=== PATIENT | female | born 2000 | race Caucasian/White ===

== ENCOUNTER → 2021-03-19 15:44 | Outpatient (CLI) | payer OTHER, SELFPAY ==
[2021-03-19 17:12] LABS: Hematocrit 31.7 % (36-46)
[2021-03-19 17:25] LABS: GTT (PREG) 1 Hour PP 50gm Dose 140 mg/dL (76-139)
== END ==
PROVIDERS: Referring Provider Specialist; Visit Provider Specialist
DX: Z34.03 Encounter for supervision of normal first pregnancy, third trimester (principal)
CPT/HCPCS: 82950; 85014; 85018

== ENCOUNTER → 2021-04-23 15:40 | Outpatient (CLI) | payer OTHER, SELFPAY ==
[2021-04-24 15:58] LABS: Strep Grp B PCR NEG for Grp B Strep
== END ==
PROVIDERS: Visit Provider Specialist
DX: Z34.03 Encounter for supervision of normal first pregnancy, third trimester (principal); Z3A.36 36 weeks gestation of pregnancy
CPT/HCPCS: 87653

== ENCOUNTER 2021-05-21 16:08 | Outpatient (CLI) | payer OTHER, SELFPAY ==
--- NOTE | 2021-05-21 16:43 | P.TNLD_ITS ---
Visit Information Visit Information Date of evaluation: 05/21/21 Primary OB Provider: Diane Luis Reason for Evaluation: Yes non-stress test Comments/Additional reasons for admission: Postdates [facility] Medical History (Updated 05/21/21 @ 16:46 by Diane Luis MD) Asthma (~2002) Astigmatism (~2010) H/O molluscum contagiosum (~10/30/20) Surgical History (Updated 02/26/21 @ 14:26 by Nellie Rodgers, RN) [place] teeth extracted (~2018) Family History (Updated 02/26/21 @ 14:49 by Nellie Rodgers RN) Mother No problems noted. Father No problems noted. Grandmother No problems noted. Grandfather No problems noted. Grandmother Diabetes mellitus Grandfather Family estrangement Social History marital status: number of children: 0 household members: spouse lives independently: Yes caregiver/support person: No housing: apartment pets and animals: Yes (1 dog: safe w baby. ) education level: high school occupational status: employed (On halfway in place restriction with [employer] -- does not work but checks in daily. ) current occupational exposures/hazards: No jose/anabaptism: Religion seatbelt use: always working smoke detector in home: Yes fire extinguisher in home: No carbon monox detector in home: Yes firearms in home: No do you feel safe at home: Yes Smoking Status: Never smoker second hand exposure: No alcohol intake: never substance use type: does not use during the past year weight has: remained stable well-balanced diet: daily or most days daily servings fruits/ve-4 caffeine: Yes (1 soda every couple days. Aware of caffeine limits.) Type(s) of exercise: walking and other (Stretches.) frequency: 3-4 times per week Evaluation Evaluation Baseline heart rate: 130 Variability: Moderate (11-25) monitor accelerations: Present Monitor Decelerations: Absent Contraction Frequency (minutes): 10 Uterine Contraction Intensity: Mild Category of Tracing: Reactive Status: Category l Diagnosis, Plan/Disposition Final Diagnosis (1) 40 weeks gestation of : Status: Acute Plan/Disposition Plan: Routine precautions reviewed. Follow-up in week. OB Disposition: home
== END 2021-05-21 16:57 | disposition home or self-care (01) ==
LOC: LABOR 16:57 → OB 05-26 07:34
PROVIDERS: Referring Provider Obstetrics & Gynecology; Visit Provider Obstetrics & Gynecology
DX: O48.0 Post-term pregnancy (principal); Z3A.40 40 weeks gestation of pregnancy
CPT/HCPCS: 59025; G0378; G0379

== ENCOUNTER 2021-05-25 13:32 | Inpatient (IN) | payer OTHER, SELFPAY ==
--- NOTE | 2021-05-25 16:51 | PM.OBHP.1 ---
OB HPI Date/Time Date of admission: 05/25/21 Date Patient Seen: 05/25/21 Time Patient Seen: 19:51 History of Present Condition Chief complaint: OBSERVATION : 1 Para: 0 Estimated Date of Delivery: 05/19/21 Estimated Gestational Age (weeks): 40+6 Narrative: Jill Anderson is a 21 year old primigravida who presents this afternoon with RUC since early this AM and early cervical exam on serial center assessments. GBS is negative. 1 hr. GDM screen was 140 mg% but no GTT obtained. Most recent US based EFW was 05/21/2021 8#9oz with RAYMUNDO 10. History of Present care: good care Dating criteria: LMP confirmed by 1st trimester US Ultrasounds: normal 1st trimester US and normal mid trimester US Obstetrical complications: other (Abnormal GDM screen) Medical complications: none Preadmission Labs Blood type: A (+) positive -: Antibody screen: negative, GBS status: negative, HBsAG: negative, HIV: negative and RPR/VDLR: negative -: Chlamydia screen: not detected and Gonorrhea screen: not detected -: Rubella: immune and Varicella: immune HCT: 39.1 HCAB: negative 1 hr GTT: 140 Prior (ies) History: Primigravida Evaluation Evaluation Baseline heart rate: 140 Variability: Moderate (11-25) monitor accelerations: Present Monitor Decelerations: Absent Contraction Frequency (minutes): 4 Uterine Contraction Intensity: Moderate Category of Tracing: Reactive Status: Category l Cervical dilation (cm): 5 Cervical effacement (%): 100 station: -2 Comments: SROM, clear fluid 1815 05/25/2021 [facility] Medical History Asthma (~2002) Astigmatism (~2010) H/O molluscum contagiosum (~10/30/20) Surgical History [place] teeth extracted (~2018) Family History Mother No problems noted. Father No problems noted. Grandmother No problems noted. Grandfather No problems noted. Grandmother Diabetes mellitus Grandfather Family estrangement Social History marital status: number of children: 0 household members: spouse lives independently: Yes caregiver/support person: No housing: apartment pets and animals: Yes (1 dog: safe w baby. ) education level: high school occupational status: employed (On residential in place restriction with [employer] -- does not work but checks in daily. ) current occupational exposures/hazards: No jose/tenriism: Amish seatbelt use: always working smoke detector in home: Yes fire extinguisher in home: No carbon monox detector in home: Yes firearms in home: No do you feel safe at home: Yes Smoking Status: Never smoker second hand exposure: No alcohol intake: never substance use type: does not use during the past year weight has: remained stable well-balanced diet: daily or most days daily servings fruits/ve-4 caffeine: Yes (1 soda every couple days. Aware of caffeine limits.) Type(s) of exercise: walking and other (Stretches.) frequency: 3-4 times per week Meds Home Medications and Allergies Home Medications Medication Instructions Recorded Confirmed Type prenat.vits,derian,oyz-ogig-lvejb 1 tab PO DAILY 02/26/21 05/25/21 History Allergies Allergy/AdvReac Type Severity Reaction Status Date / Time No Known Drug Allergies Allergy Verified 04/23/21 13:57 Review of Systems Review of Systems ROS: Yes All systems reviewed with the patient and are negative except as otherwise documented Exam Const General: cooperative and comfortable Nutritional Appearance: average body habitus Orientation: alert and oriented x3 HENMT Head: normal to inspection Ears: hearing grossly normal bilaterally Nose: external nose normal Face and sinus: face symmetric Teeth and gingiva: dentition normal Throat: posterior oropharynx normal Eyes General: appearance normal, both eyes and all related structures Conjunctivae: conjunctivae normal Sclera: sclerae normal Pupils: PERRL EOM: EOM intact bilaterally Direct ophthalmoscopy: normal light reflex Neck Neck: normal visual inspection and trachea midline Thyroid: thyroid normal Resp Effort & Inspection: normal respiratory effort and able to speak in complete sentences Auscultation: clear to auscultation bilaterally Cardio Rate: regular rate Rhythm: regular rhythm Heart Sounds: S1 normal, S2 normal and no murmurs GI Inspection: normal to inspection and other (Gravid) Palpation: soft and no hepatosplenomegaly External Female Exam: normal external appearance Uterus Location (Fundal Height): 38 Presentation: vertex Estimated Weight (lbs): 9 Amniotic Fluid: clear Extrem General: normal to inspection and no calf tenderness Psych Appearance: grossly normal Mental Status: mental status grossly normal Speech and Movement: speech and movement normal Mood: congruent mood Affect: normal affect Attitude: cooperative Thought Process: normal Thought Content: normal Judgment: judgment good Objective Labs Result Diagrams: 05/25/21 16:30 Assessment and Plan Assessment and Plan Assessment and Plan narrative: ASSESSMENT 1. Intrauterine gestation, 40+ 6 weeks gestational age, [place], vertex 2. Latent phase labor with SROM 1815, 05/25/2021 3. GBS negative 4. LGA by her most recent US w/ EFW 8#9oz 4 days ago PLAN 1. Admit for labor 2. SONJA placed with excellent relief 3. Anticipate but pelvis is unproven and her baby is borderline LGA 4. See orders Time Spent with Patient Total time spent with greater than 50% in coordination of care (as documented) at patient's floor/unit and/or counseling patient:: 15-24 minutes
[2021-05-25 17:17] LABS: Add Manual Diff / Slide Review NO; Basophils Absolute Auto 0 /uL (0-100); Basophils Percent Auto 0.2 % (0-2); Eosinophils Absolute Auto 0 /uL (0-450); Eosinophils Percent Auto 0.2 % (2-4); Hematocrit 39.1 % (36-46); Hemoglobin 13.4 g/dL (12.0-16.0); Lymphocytes Absolute Auto 1300 /uL (1100-4500); Lymphocytes Percent Auto 10.9 % (25-40); Mean Corpuscular HGB Conc 34.2 % (30-36); Mean Corpuscular Hemoglobin 34.4 PG (26-34); Mean Corpuscular Volume 100.5 fL (80-100); Monocytes Absolute Auto 900 /uL (0-900); Monocytes Percent Auto 7.6 % (3-14); Neutrophils Absolute Auto 9500 /uL (1500-7000); Neutrophils Percent Auto 81.1 % (50-75); Platelet Count 189 X10^3/uL (150-400); Red Blood Cell Count 3.89 X10^6/uL (4.0-5.2); Red Cell Distribution Width 13.4 % (11.6-14.8); White Blood Cell Count 11.8 X10^3/uL (4.5-11.0)
[2021-05-25 17:57] VITALS: BP 117/73
[2021-05-25 18:09] LABS: COVID19 - ADMIT (NP swab/PCR) Negative (Negative)
[2021-05-25] MEDS: LACTATED RINGERS 1,000 ML 100 ML IV ×2 (19:00→19:30)
--- NOTE | 2021-05-26 06:00 | PM.OBPNLAB ---
Date/Time Date Patient Seen: 05/26/21 Time Patient Seen: 06:01 Pain Control Pain control: tolerating well Pelvic Exam Dilation (cm): 8 Effacement (%): 100 station: -1 Amniotic membrane status: Ruptured Comments: SROM, light meconium @ 0500 Contractions Contractions on admission: regular Monitor mode: External Contraction frequency (min): 3 Contraction duration (min): 1 Contraction pattern: Regular Contraction phase: Resting Contraction intensity: Moderate Status status: Category l Heart Rate Baseline: 150 Monitor Accelerations: Present Monitor Decelerations: Absent Monitor Variability: Moderate Assessment and Plan Assessment: active labor Plan: continuous present management Comments: Patient has shown little progress since 0300 this AM but forewaters therefore will re-assess cervical dilation and position @ 0700 and consider IUPC if secondary arrest suspected.
--- NOTE | 2021-05-26 07:03 | PM.OBPRVD ---
Labor & Delivery Delivery date: 05/26/21 Intrapartal Events: None Cervical ripening method: none Induction method: none Delivery monitor: external FHT and external uterine Route of delivery: Episiotomy description: None L&D Laceration Description: Periurethral - 1st Degree (Bilateral, no repair required) Estimated blood loss (mL): 1,000 Anesthesia Type: Epidural Complications: None. EBL c/w PPH, responded to IV Pitocin Narrative: With the patient under satisfactory continuous lumbar epidural anesthesia in the modified dorsal lithotomy position the patient actively pushed in the 2nd stage and brought the baby down to the perineum where she had spontaneous delivery MADAI over an intact perineum of a viable male infant Apgars 8/9 and a weight of gms.(# oz.). The shoulders delivered without difficulty and the was placed on the mother's abdomen with the umbilical cord clamping delayed for 90 seconds. The placenta was then delivered with gentle cord traction and suprapubic pressure. With the delivery of placenta came a large gush of BRB which accounted for the majority of her delivery EBL. The placenta was noted to be intact with central insertion of the umbilical cord and 3 vessels noted. The perineum and lower vagina were all inspected carefully with the lacerations as noted above. Neither of the periurethral lacerations required closure.. Sponge, instrument, and needle counts were correct both before and after the procedure. EBL was approximately 1000 cc. QBL pending. Mother and infant tolerated the delivery well and the baby is having skin to skin contact and is being initiated. Baby 1: gender: Male Presentation: vertex Position: Left Occiput Anterior Placenta delivery description: Spontaneous Cord Vessel Description: 3 Vessels score (1 min): 8 score (5 min): 9 weight: 9 lb 14 oz Plan for aftercare: Routine care
[2021-05-26] MEDS: ACETAMINOPHEN 325 MG TABLET 650 MG PO ×3 (11:07→22:43)
[2021-05-26] MEDS: IBUPROFEN 600 MG TABLET PO ×3 (11:08→22:43)
[2021-05-26 17:05] VITALS: TEMP 36.6
[2021-05-26 17:06] VITALS: TEMP 36.6
[2021-05-27 00:33] VITALS: BP 117/73; PULSE 66; RESP 16; TEMP 36.6
[2021-05-27] MEDS: ACETAMINOPHEN 325 MG TABLET 650 MG PO (05:47)
[2021-05-27] MEDS: IBUPROFEN 600 MG TABLET PO (05:47)
[2021-05-27] MEDS: LANOLIN OINT 7 GM 1 APPLIC TOP (08:57)
[2021-05-27] MEDS: PRENATAL VIT,CALC/IRON/FOLIC 1 TABLET 1 TAB PO (08:59)
[2021-05-27] MEDS: DOCUSATE 100 MG CAPSULE PO (09:00)
--- NOTE | 2021-05-27 12:24 | P.DS_ITS ---
Discharge Providers Provider Date of admission: 05/25/21 13:32 Discharge Date: 05/27/21 Consults: 05/25/21 16:36 Consult to Anesthesiology Urgent Comment: Consulting Provider: Anesthesiologist Reason for consultation: epidural Has provider been notified: Yes 05/27/21 07:06 Consult to Medical Records Secretary Routine Comment: Discharge provider: Diane Luis MD Summary Hospital Course Date Patient Seen: 05/27/21 Time Patient Seen: 12:25 Diagnoses: 41 week gestation with spontaneous vaginal delivery Hospital Course: Patient arrived on Labor and delivery in active labor. She received an epidural catheter for pain control. She had a spontaneous vaginal delivery of a viable male infant weighing 9 lb 13 oz. Both infant mother doing well. Peripartum Data Delivery Method: Natural Vaginal Laceration Description: None Procedures: Epidural catheter, spontaneous vaginal delivery complications: none [place] 1: Gender: Male Disposition of : home Discharge Diagnosis (1) Vaginal delivery: Status: Acute Status at Discharge Cognitive/behavioral status at discharge: oriented Functional status at discharge: independent ambulation Overall status at discharge: patient is progressing back to baseline Time Spent with Patient Time attestation: Total time spent providing and/or coordinating discharge services: Time spent: Less than 30 minutes Objective Labs Result Diagrams: 05/25/21 16:30 Exam Vital Signs (past 8 hours): Blood pressure 109/62, pulse 66, temperature 97.9? Narrative Exam Narrative: Patient's abdomen is soft, nontender. Uterus is firm, at U, nontender. Mild lochia. Extremities without edema and nontender. Blood type is A positive, she is rubella immune, she received Tdap in the 3rd trimester Discharge Plan Discharge Plan Patient Disposition: Home Discharge orders & Medications Prescriptions: Continued prenat.vits,derian,[id number]-[id number] Tablet 1 tab PO DAILY RF: 0 Follow up/Referrals: Diane Luis MD [Physician] - 07/01/21 10:30 am Diet/Activity/Treatments Diet: Regular Activity: Nothing in vagina for 6 weeks Skin/Wound/Dressing Care Report to your healthcare provider any signs of infection, such as:: chills, fever and increased pain Visit Report/Discharge Packet Stand Alone Forms: Discharge: Care
== END 2021-05-27 13:00 | disposition home or self-care (01) | DRG 807 ==
PROVIDERS: Specialist; Admitting Provider Obstetrics & Gynecology; Referring Provider Obstetrics & Gynecology; Visit Provider Obstetrics & Gynecology
DX: O48.0 Post-term pregnancy (principal); Z37.0 Single live birth; O42.02 Full-term premature rupture of membranes, onset of labor within 24 hours of rupture; Z3A.41 41 weeks gestation of pregnancy; O77.0 Labor and delivery complicated by meconium in amniotic fluid; Z20.822 Contact with and (suspected) exposure to COVID-19
CPT/HCPCS: 01967; 36415; 59050; 59410; 85025; 86850; 86900; 86901; 87635; C9803; G0379

== ENCOUNTER → 2023-01-07 06:50 | Outpatient (CLI) | payer OTHER, SELFPAY ==
--- NOTE | 2023-01-07 06:51 | DI.US.S_ITS ---
PROCEDURE: US OB <= 14 WEEKS FETUS INDICATIONS: DATING OUTSIDE/PRIOR DATING DATA: Last menstrual period (LMP): Unknown. LMP-based estimated date of delivery (AI): Unknown. First dating scan (date and location): 01/07/2023. Estimated date of delivery (AI) from first dating scan: 08/28/2023. TECHNIQUE: Real-time scanning was performed of the fetus and maternal pelvic organs, with image documentation. Endovaginal scanning was also performed to better visualize the fetus and maternal ovaries. COMPARISON: None. FINDINGS: Embryo: [place]-rump length measuring 0.8 cm, gestational age 6 weeks 5 days Heart rate: 122 bpm A yolk sac is seen. A thin septation within the gestational sac is seen. Small perigestational hemorrhage measuring 2.2 x 1.5 x 0.2 cm. Maternal organs: Ovaries are within normal limits. Probable left corpus luteum. IMPRESSION: 1. [place] living intrauterine at 6 weeks 5 days based on today's crown rump length. 2. Small perigestational hemorrhage. We strive to produce accurate, complete, and clear reports of imaging services. To assist us in improving patient care, this report was composed using standard report templates and voice recognition software. Therefore, it may contain abnormal punctuation, insertions and/or omissions. Occasional wrong-word or sound-alike substitutions may occur. Though we review the report and make efforts to correct it, we do recommend that the report be read carefully in proper context to recognize any text inaccuracies. Dictated by: Henry Roberts M.D. on 01/07/2023 at 8:53 Approved by: Henry Roberts M.D. on 01/07/2023 at 8:55
== END ==
PROVIDERS: Referring Provider Obstetrics & Gynecology; Visit Provider Obstetrics & Gynecology
DX: O46.8X1 Other antepartum hemorrhage, first trimester (principal); Z3A.01 Less than 8 weeks gestation of pregnancy
CPT/HCPCS: 76801; 76817

== ENCOUNTER → 2023-02-16 16:27 | Outpatient (CLI) | payer OTHER, SELFPAY ==
[2023-02-16 17:33] LABS: Add Manual Diff / Slide Review NO; Basophils Absolute Auto 100 /uL (0-100); Basophils Percent Auto 0.6 % (0-2); Eosinophils Absolute Auto 100 /uL (0-450); Hemoglobin 10.9 g/dL (12.0-16.0); Lymphocytes Absolute Auto 1500 /uL (1100-4500); Lymphocytes Percent Auto 16.9 % (25-40); Mean Corpuscular HGB Conc 35.3 % (30-36); Mean Corpuscular Hemoglobin 31.4 PG (26-34); Mean Corpuscular Volume 89.1 fL (80-100); Monocytes Absolute Auto 500 /uL (0-900); Monocytes Percent Auto 6.3 % (3-14); Neutrophils Absolute Auto 6500 /uL (1500-7000); Neutrophils Percent Auto 75.2 % (50-75); Platelet Count 255 X10^3/uL (150-400); Red Blood Cell Count 3.48 X10^6/uL (4.0-5.2); Red Cell Distribution Width 11.9 % (11.6-14.8); White Blood Cell Count 8.6 X10^3/uL (4.5-11.0)
[2023-02-17 15:28] LABS: Hepatitis B Surface Antigen NEGATIVE s/c (NEGATIVE); Rubella Antibody IgG 6.8 IU/mL (>15)
[2023-02-17 15:50] LABS: HIV 1 & 2 Ab/Ag 4th Gen Combo NEGATIVE (NEGATIVE); Hep C Virus Ab w/Reflex Quant NEGATIVE s/c (NEGATIVE)
[2023-02-18 09:38] LABS: Varicella IgG Antibody <135 index (Immune >165)
[2023-02-19 03:09] LABS: RPR Screen Non Reactive (Non Reactive)
== END ==
PROVIDERS: Referring Provider Obstetrics & Gynecology; Visit Provider Obstetrics & Gynecology
DX: Z34.81 Encounter for supervision of other normal pregnancy, first trimester (principal)
CPT/HCPCS: 36415; 80055; 86787; 86803; 86850; 86900; 86901; 87389

== ENCOUNTER → 2023-03-23 10:17 | Outpatient (CLI) | payer OTHER, SELFPAY | PROVIDERS: Visit Provider Obstetrics & Gynecology | DX: Z34.81 Encounter for supervision of other normal pregnancy, first trimester (principal) | CPT/HCPCS: 87086 ==

== ENCOUNTER → 2023-03-23 10:47 | Outpatient (CLI) | payer OTHER, SELFPAY ==
[2023-03-26 21:15] LABS: AFP, Serum 61.6 ng/mL (.); Estriol, Free 1.45 ng/mL (.); Inhibin A, Dimeric 212.83 pg/mL (.); Inhibin A, MoM 1.28 (.); Maternal Ethnicity Caucasian (.); Maternal Weight 130 lbs (.); Number of Fetuses No (.); OSBR Risk 1 IN 3600 (.); Results Report (.); Test Results *Screen Negative* (.); hCG, MoM 1.41 (.); hCG, Serum 52891 mIU/mL (.)
== END ==
PROVIDERS: Referring Provider Obstetrics & Gynecology; Visit Provider Obstetrics & Gynecology
DX: Z34.82 Encounter for supervision of other normal pregnancy, second trimester (principal); Z3A.16 16 weeks gestation of pregnancy
CPT/HCPCS: 36415; 82105; 82677; 84702; 86336; 87086

== ENCOUNTER 2023-03-26 15:55 | Inpatient (IN) | payer OTHER, SELFPAY ==
[2023-03-26] VITALS (7 sets, daily range): BP systolic 95–101; BP diastolic 57–66; PULSE 80–98; RESP 14–23; TEMP 36.2–36.6; O2SAT 98–100; BMI 22.3
--- NOTE | 2023-03-26 16:17 | DI.US.S_ITS ---
PROCEDURE: US ABDOMEN LIMITED INDICATIONS: Epigastric pain, 18 weeks , loose stool, vomiting TECHNIQUE: Real-time scanning was performed of the right upper quadran, with image documentation. COMPARISON: None. FINDINGS: Liver: Liver is normal in size and homogeneous in echotexture. Gallbladder: Within the gallbladder there are numerous mobile stones. Positive sonographic Steele sign per personnel specialist. No pericholecystic fluid. Gallbladder wall measures 1.1 mm. Biliary ducts: Intrahepatic bile ducts are non-dilated. Extrahepatic bile duct caliber measures 2.3 mm. Normal is 6-7 mm or less in diameter, or 10 mm or less post-cholecystectomy. Pancreas: Visualized portions of the pancreas are sonographically normal. Miscellaneous: No free abdominal fluid. Other: Live intrauterine . heart rate of 157 beats per minute IMPRESSION: 1. Cholelithiasis with positive sonographic Steele is highly suggestive of acute cholecystitis 2. Live intrauterine . Dictated by: Rudolph Park M.D. on 03/26/2023 at 16:37 Approved by: Rudolph Park M.D. on 03/26/2023 at 16:40
--- NOTE | 2023-03-26 16:20 | ED_ITS ---
HPI - Abdominal Pain <ULYSSES Cornelius - Last Filed: 03/26/23 17:57> General Chief Complaint: Abdominal Pain Stated Complaint: Stomach cramps Time Seen by Provider: 03/26/23 16:06 History of Present Illness HPI narrative: This is a 18 week gestation female who presents to the emergency department with abdominal pain started yesterday in her lower abdomen and pelvis, states it has progressed today to generalized and upper abdominal pain associated with nausea, vomiting, loose stool. She states that she just got back from [place], has some upper respiratory congestion but denies fever, chills, dysuria, urinary frequency or urgency, endorses low back pain but states this is where her previous epidural was and is chronic in nature. Related Data Home Medications Medication Instructions Recorded Confirmed ferrous sulfate 250 mg (50 mg 250 mg PO DAILY 01/13/23 03/23/23 iron) tablet,extended release prenat.vits,derian,uyk-gykk-eeqlh 1 tab PO DAILY 01/13/23 03/23/23 Allergies Allergy/AdvReac Type Severity Reaction Status Date / Time No Known Drug Allergies Allergy Verified 03/26/23 16:04 Review of Systems <ULYSSES Cornelius - Last Filed: 03/26/23 17:57> Review of Systems ROS Unobtainable: All systems reviewed & are unremarkable except as noted in HPI and below Patient History <ULYSSES Cornelius - Last Filed: 03/26/23 17:57> Medical History Asthma (~2002) Astigmatism (~2010) Encounter for IUD insertion (~07/22/21) H/O molluscum contagiosum (~10/30/20) Migraine without aura Vaginal delivery (~05/26/21) Surgical History [place] teeth extracted (~2018) Family History Mother No problems noted. Father No problems noted. Grandmother No problems noted. Grandfather No problems noted. Grandmother Diabetes mellitus Grandfather Family estrangement Social History marital status: number of children: 1 household members: spouse and children lives independently: Yes caregiver/support person: Yes housing: apartment pets and animals: Yes (2 dogs) education level: high school occupational status: employed (active duty cook) current occupational exposures/hazards: No jose/pentecostalism: [employer] special jose needs: No travel history: recent (Domestic and [place] only) seatbelt use: always water heater temp set < 120 deg: Yes working smoke detector in home: Yes fire extinguisher in home: Yes carbon monox detector in home: Yes firearms in home: Yes firearms unloaded and locked: Yes do you feel safe at home: Yes Smoking Status: Never smoker second hand exposure: No alcohol intake: former (rarely when not ) substance use type: does not use during the past year weight has: remained stable well-balanced diet: about half the time daily servings fruits/ve-4 caffeine: Yes (1 soda every couple days. Aware of caffeine limits.) Type(s) of exercise: walking and other frequency: 3-4 times per week Smoking Status: Never smoker Exam <ULYSSES Cornelius - Last Filed: 03/26/23 17:57> Narrative Exam Narrative: Reviewed vitals signs and nursing notes. General: Pleasant, sitting upright, in no acute distress, well groomed, afebrile HEENT: symmetrical facial expressions, moist mucous membranes, neck is supple CV: regular rate and rhythm, warm extremities Respiratory: normal work of breathing, without tachypnea or hypoxia. GI: Gravid, fundus below the umbilicus, no exquisite tenderness, epigastric pain to palpation, she has no other tenderness to palpation, she does have left- sided CVA tenderness to palpation, no exquisite tenderness to the right MSK: moves all extremities, no weakness, normal tone, ambulatory without deficit Skin: brisk capillary refill, without rash or wound Neuro: clear speech and normal cognition, A&O x3, GCS 15, no focal motor or sensation deficits Initial Vital Signs Initial Vital Signs: Vital Signs Pulse Rate 84 03/26/23 16:01 Respiratory Rate 16 03/26/23 16:01 Blood Pressure 101/62 03/26/23 16:01 Pulse Oximetry 100 03/26/23 16:01 Oxygen Delivery Method Room Air 03/26/23 16:01 <Osmin Flores DO - Last Filed: 03/26/23 17:58> Initial Vital Signs Initial Vital Signs: Vital Signs Pulse Rate 84 03/26/23 16:01 Respiratory Rate 16 03/26/23 16:01 Blood Pressure 101/62 03/26/23 16:01 Pulse Oximetry 100 03/26/23 16:01 Oxygen Delivery Method Room Air 03/26/23 16:01 Course <ULYSSES Cornelius - Last Filed: 03/26/23 17:57> Orders Ordered: ED Orders 03/26/23 16:05 CRP [C-Reactive Protein Quant] Stat Complete Blood Count AUTO DIFF Stat Comprehensive Metabolic Panel Stat Covid-19 + FLU A/B + RSV - PCR Stat Lactate (Lactic Acid) Stat Lipase Stat Magnesium Stat Procalcitonin Stat 03/26/23 16:17 US abdomen limited Stat 03/26/23 16:40 Urine Culture Stat Urine Microscopic Stat 03/26/23 16:56 Blood Culture Stat 03/26/23 17:05 Blood Culture Stat Acetaminophen (Acetaminophen 325 Mg Tablet) 650 mg PO Q6H EULALIA Calcium Carbonate (Calcium Carbonate 500 Mg Tab) 1,000 mg PO Q4HR PRN PRN Reason: Dyspepsia Lactated Ringer's (Lactated Ringers) 1,000 mls @ 1,000 mls/hr IV BOLUS ONE Stop: 03/26/23 18:26 Last Admin: 03/26/23 17:39 Dose: 1,000 mls/hr Documented By: RLS Lactated Ringer's (Lactated Ringers) 1,000 mls @ 100 mls/hr IV CONT EULALIA Ceftriaxone Sodium 1,000 mg/ (Sodium Chloride) 100 mls @ 200 mls/hr IV Q24H EULALIA Naloxone HCl (Naloxone 0.4 Mg/Ml Vial) 0.2 mg IV Q2MIN PRN PRN Reason: Opiate Reversal Ondansetron HCl (Ondansetron 4 Mg Odt) 4 mg PO NOW PRN PRN Reason: Nausea And Vomiting Ondansetron HCl (Ondansetron 4 Mg/2 Ml Inj) 4 mg IV NOW PRN PRN Reason: Nausea And Vomiting Ondansetron HCl (Ondansetron 4 Mg/2 Ml Inj) 4 mg IV Q8HR PRN PRN Reason: Nausea And Vomiting Oxycodone HCl (Oxycodone Ir 5 Mg Tablet) 5 mg PO Q3H PRN PRN Reason: Pain, Moderate (4-6) Discontinued Medications Acetaminophen (Acetaminophen 325 Mg Tablet) 325 mg PO NOW ONE Stop: 03/26/23 16:57 Last Admin: 03/26/23 17:36 Dose: 325 mg Documented By: ADRIENNE Hydrocodone Bitart/Acetaminophen (Hydrocodone/Acet 5/325 Tablet) 1 tab PO NOW ONE Stop: 03/26/23 16:57 Last Admin: 03/26/23 17:37 Dose: 1 tab Documented By: RLS Al Hydrox/Mg Hydrox/Simethicone (Mag Hydrox/Alum/Simeth 30 Ml Udc) 30 ml PO NOW ONE Stop: 03/26/23 16:49 Last Admin: 03/26/23 16:59 Dose: 30 ml Documented By: ADRIENNE Sodium Chloride (Normal Saline 0.9%) 1,000 mls @ 1,000 mls/hr IV BOLUS ONE Stop: 03/26/23 17:16 Last Infusion: 03/26/23 17:39 Dose: 0 mls/hr Documented By: Admin: 03/26/23 16:45 Dose: 1,000 mls/hr Documented By: ADRIENNE Ceftriaxone Sodium 1,000 mg/ (Sodium Chloride) 100 mls @ 200 mls/hr IV NOW ONE Stop: 03/26/23 16:48 Last Admin: 03/26/23 17:37 Dose: 200 mls/hr Documented By: ADRIENNE Pantoprazole Sodium (Pantoprazole 40 Mg Vial) 40 mg IV NOW ONE Stop: 03/26/23 16:18 Last Admin: 03/26/23 16:45 Dose: 40 mg Documented By: ADRIENNE Potassium Chloride (Potassium Chloride 20 Meq/15 Ml Udc) 40 meq PO NOW ONE Stop: 03/26/23 16:47 Last Admin: 03/26/23 16:58 Dose: 40 meq Documented By: ADRIENNE Vital Signs Vital signs: Vital Signs - 8 hr 03/26/23 16:01 03/26/23 17:12 Temperature 97.8 F Pulse Rate 84 80 Respiratory Rate 16 14 Blood Pressure 101/62 Pulse Oximetry 100 99 Oxygen Delivery Method Room Air Room Air <Osmin Flores DO - Last Filed: 03/26/23 17:58> Orders Ordered: ED Orders 03/26/23 16:05 CRP [C-Reactive Protein Quant] Stat Complete Blood Count AUTO DIFF Stat Comprehensive Metabolic Panel Stat Covid-19 + FLU A/B + RSV - PCR Stat Lactate (Lactic Acid) Stat Lipase Stat Magnesium Stat Procalcitonin Stat 03/26/23 16:17 US abdomen limited Stat 03/26/23 16:40 Urine Culture Stat Urine Microscopic Stat 03/26/23 16:56 Blood Culture Stat 03/26/23 17:05 Blood Culture Stat Acetaminophen (Acetaminophen 325 Mg Tablet) 650 mg PO Q6H EULALIA Calcium Carbonate (Calcium Carbonate 500 Mg Tab) 1,000 mg PO Q4HR PRN PRN Reason: Dyspepsia Lactated Ringer's (Lactated Ringers) 1,000 mls @ 1,000 mls/hr IV BOLUS ONE Stop: 03/26/23 18:26 Last Admin: 03/26/23 17:39 Dose: 1,000 mls/hr Documented By: ADRIENNE Lactated Ringer's (Lactated Ringers) 1,000 mls @ 100 mls/hr IV CONT EULALIA Ceftriaxone Sodium 1,000 mg/ (Sodium Chloride) 100 mls @ 200 mls/hr IV Q24H EULALIA Naloxone HCl (Naloxone 0.4 Mg/Ml Vial) 0.2 mg IV Q2MIN PRN PRN Reason: Opiate Reversal Ondansetron HCl (Ondansetron 4 Mg Odt) 4 mg PO NOW PRN PRN Reason: Nausea And Vomiting Ondansetron HCl (Ondansetron 4 Mg/2 Ml Inj) 4 mg IV NOW PRN PRN Reason: Nausea And Vomiting Ondansetron HCl (Ondansetron 4 Mg/2 Ml Inj) 4 mg IV Q8HR PRN PRN Reason: Nausea And Vomiting Oxycodone HCl (Oxycodone Ir 5 Mg Tablet) 5 mg PO Q3H PRN PRN Reason: Pain, Moderate (4-6) Discontinued Medications Acetaminophen (Acetaminophen 325 Mg Tablet) 325 mg PO NOW ONE Stop: 03/26/23 16:57 Last Admin: 03/26/23 17:36 Dose: 325 mg Documented By: ADRIENNE Hydrocodone Bitart/Acetaminophen (Hydrocodone/Acet 5/325 Tablet) 1 tab PO NOW ONE Stop: 03/26/23 16:57 Last Admin: 03/26/23 17:37 Dose: 1 tab Documented By: RLS Al Hydrox/Mg Hydrox/Simethicone (Mag Hydrox/Alum/Simeth 30 Ml Udc) 30 ml PO NOW ONE Stop: 03/26/23 16:49 Last Admin: 03/26/23 16:59 Dose: 30 ml Documented By: ADRIENNE Sodium Chloride (Normal Saline 0.9%) 1,000 mls @ 1,000 mls/hr IV BOLUS ONE Stop: 03/26/23 17:16 Last Infusion: 03/26/23 17:39 Dose: 0 mls/hr Documented By: Admin: 03/26/23 16:45 Dose: 1,000 mls/hr Documented By: ADRIENNE Ceftriaxone Sodium 1,000 mg/ (Sodium Chloride) 100 mls @ 200 mls/hr IV NOW ONE Stop: 03/26/23 16:48 Last Admin: 03/26/23 17:37 Dose: 200 mls/hr Documented By: ADRIENNE Pantoprazole Sodium (Pantoprazole 40 Mg Vial) 40 mg IV NOW ONE Stop: 03/26/23 16:18 Last Admin: 03/26/23 16:45 Dose: 40 mg Documented By: ADRIENNE Potassium Chloride (Potassium Chloride 20 Meq/15 Ml Udc) 40 meq PO NOW ONE Stop: 03/26/23 16:47 Last Admin: 03/26/23 16:58 Dose: 40 meq Documented By: ADRIENNE Vital Signs Vital signs: Vital Signs - 8 hr 03/26/23 16:01 03/26/23 17:12 Temperature 97.8 F Pulse Rate 84 80 Respiratory Rate 16 14 Blood Pressure 101/62 Pulse Oximetry 100 99 Oxygen Delivery Method Room Air Room Air MDM - Abdominal Pain <ULYSSES Cornelius - Last Filed: 03/26/23 17:57> Lab Data Lab results narrative: SPEC #: [id number] NELIDA: 03/23/23 STATUS: COMP REQ #: [id number] SPDESC: RECD: 03/23/23-[address]: Mookie Silvestre MD SOURCE: Urine CC ENTR: 03/23/[address]: Adi Yeung FAX TO: ORDERED: URINE CULTURE Procedure Result Verified Site Urine Culture Final 03/25/23816 3 or more colony types Mixed gram + deborah. Deemed unsuitable for further studies. 03/26/23 16:05 03/26/23 16:05 Labs: Lab Results 03/26/23 03/26/23 03/26/23 Range/Units 16:05 16:05 16:05 WBC 6.2 (4.5-11.0) X10^3/uL RBC 3.46 L (4.0-5.2) X10^6/uL Hgb 11.0 L (12.0-16.0) g/dL Hct 31.2 L (36-46) % MCV 90.1 (80-100) fL MCH 31.7 (26-34) PG MCHC 35.2 (30-36) % RDW 13.1 (11.6-14.8) % Plt Count 221 (150-400) X10^3/uL Neut % (Auto) 77.1 H (50-75) % Lymph % (Auto) 15.3 L (25-40) % Wilkin % (Auto) 5.6 (3-14) % Eos % (Auto) 1.8 L (2-4) % Baso % (Auto) 0.2 (0-2) % Neut # (Auto) 4800 (7926-6127) /uL Lymph # (Auto) 900 L (6876-3143) /uL Wilkin # (Auto) 300 (0-900) /uL Eos # (Auto) 100 (0-450) /uL Baso # (Auto) 0 (0-100) /uL Sodium 134 L (137-145) mmol/L Potassium 3.2 L (3.4-5.1) mmol/L Chloride 99 (98-107) mmol/L Carbon Dioxide 25 (22-32) mmol/L BUN 15 (7-17) mg/dL Creatinine 0.44 L (0.52-1.04) mg/dL Estimated GFR > 60 (>60) mL/min BUN/Creatinine Ratio 34.1 H (6-22) Glucose 96 (70-100) mg/dL Lactate (0.7-2.1) mmol/L Calcium 8.6 (8.4-10.2) mg/dL Magnesium 1.8 (1.6-2.3) mg/dL Total Bilirubin 0.7 (0.2-1.3) mg/dL AST 18 (14-36) IU/L ALT 12 (<35) IU/L Alkaline Phosphatase 58 (38-126) U/L C-Reactive Protein (<1.0) mg/dL Total Protein 7.6 (6.3-8.2) g/dL Albumin 3.8 (3.5-5.0) g/dL Globulin 3.8 (1.7-4.1) g/dL Albumin/Globulin Ratio 1.0 (1.0-2.8) Lipase 54 (23-300) U/L Procalcitonin (<0.5) ng/mL Urine RBC (0-5/HPF) Urine WBC (0-5/HPF) Ur Squamous Epith Cells (0-5/HPF) Urine Bacteria (None) Urine Mucus (Negative) Ur Culture Indicated? SARS-CoV-2 (PCR) (Negative) Influenza A (RT-PCR) (NEGATIVE) Influenza B (RT-PCR) (NEGATIVE) RSV (PCR) (Negative) 03/26/23 03/26/23 03/26/23 Range/Units 16:05 16:05 16:05 WBC (4.5-11.0) X10^3/uL RBC (4.0-5.2) X10^6/uL Hgb (12.0-16.0) g/dL Hct (36-46) % MCV (80-100) fL MCH (26-34) PG MCHC (30-36) % RDW (11.6-14.8) % Plt Count (150-400) X10^3/uL Neut % (Auto) (50-75) % Lymph % (Auto) (25-40) % Wilkin % (Auto) (3-14) % Eos % (Auto) (2-4) % Baso % (Auto) (0-2) % Neut # (Auto) (8037-1226) /uL Lymph # (Auto) (4436-7531) /uL Wilkin # (Auto) (0-900) /uL Eos # (Auto) (0-450) /uL Baso # (Auto) (0-100) /uL Sodium (137-145) mmol/L Potassium (3.4-5.1) mmol/L Chloride (98-107) mmol/L Carbon Dioxide (22-32) mmol/L BUN (7-17) mg/dL Creatinine (0.52-1.04) mg/dL Estimated GFR (>60) mL/min BUN/Creatinine Ratio (6-22) Glucose (70-100) mg/dL Lactate 0.7 (0.7-2.1) mmol/L Calcium (8.4-10.2) mg/dL Magnesium (1.6-2.3) mg/dL Total Bilirubin (0.2-1.3) mg/dL AST (14-36) IU/L ALT (<35) IU/L Alkaline Phosphatase (38-126) U/L C-Reactive Protein 5.2 H (<1.0) mg/dL Total Protein (6.3-8.2) g/dL Albumin (3.5-5.0) g/dL Globulin (1.7-4.1) g/dL Albumin/Globulin Ratio (1.0-2.8) Lipase (23-300) U/L Procalcitonin 0.17 (<0.5) ng/mL Urine RBC (0-5/HPF) Urine WBC (0-5/HPF) Ur Squamous Epith Cells (0-5/HPF) Urine Bacteria (None) Urine Mucus (Negative) Ur Culture Indicated? SARS-CoV-2 (PCR) Negative (Negative) Influenza A (RT-PCR) Flu a negative (NEGATIVE) Influenza B (RT-PCR) Flu b negative (NEGATIVE) RSV (PCR) Negative (Negative) 03/26/23 Range/Units 16:40 WBC (4.5-11.0) X10^3/uL RBC (4.0-5.2) X10^6/uL Hgb (12.0-16.0) g/dL Hct (36-46) % MCV (80-100) fL MCH (26-34) PG MCHC (30-36) % RDW (11.6-14.8) % Plt Count (150-400) X10^3/uL Neut % (Auto) (50-75) % Lymph % (Auto) (25-40) % Wilkin % (Auto) (3-14) % Eos % (Auto) (2-4) % Baso % (Auto) (0-2) % Neut # (Auto) (7597-7907) /uL Lymph # (Auto) (0621-9046) /uL Wilkin # (Auto) (0-900) /uL Eos # (Auto) (0-450) /uL Baso # (Auto) (0-100) /uL Sodium (137-145) mmol/L Potassium (3.4-5.1) mmol/L Chloride (98-107) mmol/L Carbon Dioxide (22-32) mmol/L BUN (7-17) mg/dL Creatinine (0.52-1.04) mg/dL Estimated GFR (>60) mL/min BUN/Creatinine Ratio (6-22) Glucose (70-100) mg/dL Lactate (0.7-2.1) mmol/L Calcium (8.4-10.2) mg/dL Magnesium (1.6-2.3) mg/dL Total Bilirubin (0.2-1.3) mg/dL AST (14-36) IU/L ALT (<35) IU/L Alkaline Phosphatase (38-126) U/L C-Reactive Protein (<1.0) mg/dL Total Protein (6.3-8.2) g/dL Albumin (3.5-5.0) g/dL Globulin (1.7-4.1) g/dL Albumin/Globulin Ratio (1.0-2.8) Lipase (23-300) U/L Procalcitonin (<0.5) ng/mL Urine RBC None seen (0-5/HPF) Urine WBC 5-10/hpf H (0-5/HPF) Ur Squamous Epith Cells 1-5 /hpf (0-5/HPF) Urine Bacteria Moderate (10-30) H (None) Urine Mucus 1+ H (Negative) Ur Culture Indicated? Specimen cultured SARS-CoV-2 (PCR) (Negative) Influenza A (RT-PCR) (NEGATIVE) Influenza B (RT-PCR) (NEGATIVE) RSV (PCR) (Negative) Point of care testing: Urine Dip Bedside Urine Glucose Negative Bedside Urine Bilirubin + 1 Bedside Urine Ketone +++ 80 Urine Specific [place] 1.015 Bedside Urine Occult Blood - Negative Bedside Urine pH 6.5 Bedside Urine Protein +/- 15 Bedside Urine Urobilinogen 1+ 2mg Bedside Urine Nitrite - Negative Bedside Urine Leukocytes + 70 Esterase Imaging Data US - abdomen: Radiologist's Impression: PROCEDURE:? US ABDOMEN LIMITED ? INDICATIONS:? Epigastric pain, 18 weeks , loose stool, vomiting ? TECHNIQUE:? Real-time scanning was performed of the right upper quadran, with image documentation.? ? COMPARISON:? None. ? FINDINGS:? ? Liver:? Liver is normal in size and homogeneous in echotexture.? ? Gallbladder:? Within the gallbladder there are numerous mobile stones.? Positive sonographic Steele sign per supervisor pigment making.? No pericholecystic fluid.? Gallbladder wall measures 1.1 mm. ? Biliary ducts:? Intrahepatic bile ducts are non-dilated.? Extrahepatic bile duct caliber measures 2.3 mm.? Normal is 6-7 mm or less in diameter, or 10 mm or less post-cholecystectomy.? ? Pancreas:? Visualized portions of the pancreas are sonographically normal.? ? Miscellaneous:? No free abdominal fluid.? ? Other:? Live intrauterine .? heart rate of 157 beats per minute ? ? IMPRESSION:? 1. Cholelithiasis with positive sonographic Steele is highly suggestive of acute cholecystitis 2. Live intrauterine . ? Dictated by: Rudolph Park M.D. on 03/26/2023 at 16:37 ? ? Approved by: Rudolph Park M.D. on 03/26/2023 at 16:40 ? MDM Narrative Medical decision making narrative: Chief Complaint: Abdominal pain epigastric pain, vomiting, diarrhea Independent historian: Patient Multiple etiologies for patient's symptoms considered including, but not limited to: Urinary tract infection, pyelonephritis cholecystitis, cholelithiasis, cholangitis, gastric ulcer/peptic ulcer disease, GERD with esophagitis, perforated viscus, acute viral process I have independently reviewed the patient's vital signs and nursing notes as well as prior records if available. Pertinent records include: Prior urine culture from 03/23/2023 grew Gram- positive organisms My interpretation of lab studies: Urine dip is positive for leukocyte esterase, wbc's, ketones, microscopy is positive for bacteria, WBCs without contamination My interpretation of imaging: Abdominal ultrasound is positive for cholelithiasis without obstruction or cholecystitis Consultations: With [facility]. Luis from [facility] heart tones: 161 Course of care: Patient was treated with a L of IV fluid, blood cultures, CRP is elevated, procalcitonin is not, normal creatinine GFR over 60, hypokalemia of 3.2, no leukocytosis or new anemia. Consultation with Dr. Luis from OBGYN regarding patient's clinical pyelonephritis and Dr. Luis accepts patient for admission for pyelonephritis. She has left-sided flank tenderness, is without fever but has had vomiting and difficulty keeping any of her food or water down. Patient received 2 L of IV fluid, 1 normal saline and 1 lactated Ringer's, ceftriaxone, Tylenol, Zofran and hydrocodone. She was given Maalox x1 for epigastric pain which she states was helpful, she is given 40 mEq of potassium chloride for hypokalemia Social considerations that may affect disposition: none Questions are addressed and there is agreement with the plan and for follow-up. I consulted with the ED attending physician Dr. Flores as needed for higher level of care considerations and they were available for discussion and recommendations regarding plan of care and diagnostic testing. Patient is appropriate for outpatient management. <Osmin Flores, DO - Last Filed: 03/26/23 17:58> Lab Data Labs: Lab Results 03/26/23 03/26/23 03/26/23 Range/Units 16:05 16:05 16:05 WBC 6.2 (4.5-11.0) X10^3/uL RBC 3.46 L (4.0-5.2) X10^6/uL Hgb 11.0 L (12.0-16.0) g/dL Hct 31.2 L (36-46) % MCV 90.1 (80-100) fL MCH 31.7 (26-34) PG MCHC 35.2 (30-36) % RDW 13.1 (11.6-14.8) % Plt Count 221 (150-400) X10^3/uL Neut % (Auto) 77.1 H (50-75) % Lymph % (Auto) 15.3 L (25-40) % Wilkin % (Auto) 5.6 (3-14) % Eos % (Auto) 1.8 L (2-4) % Baso % (Auto) 0.2 (0-2) % Neut # (Auto) 4800 (2755-7689) /uL Lymph # (Auto) 900 L (2997-5375) /uL Wilkin # (Auto) 300 (0-900) /uL Eos # (Auto) 100 (0-450) /uL Baso # (Auto) 0 (0-100) /uL Sodium 134 L (137-145) mmol/L Potassium 3.2 L (3.4-5.1) mmol/L Chloride 99 (98-107) mmol/L Carbon Dioxide 25 (22-32) mmol/L BUN 15 (7-17) mg/dL Creatinine 0.44 L (0.52-1.04) mg/dL Estimated GFR > 60 (>60) mL/min BUN/Creatinine Ratio 34.1 H (6-22) Glucose 96 (70-100) mg/dL Lactate (0.7-2.1) mmol/L Calcium 8.6 (8.4-10.2) mg/dL Magnesium 1.8 (1.6-2.3) mg/dL Total Bilirubin 0.7 (0.2-1.3) mg/dL AST 18 (14-36) IU/L ALT 12 (<35) IU/L Alkaline Phosphatase 58 (38-126) U/L C-Reactive Protein (<1.0) mg/dL Total Protein 7.6 (6.3-8.2) g/dL Albumin 3.8 (3.5-5.0) g/dL Globulin 3.8 (1.7-4.1) g/dL Albumin/Globulin Ratio 1.0 (1.0-2.8) Lipase 54 (23-300) U/L Procalcitonin (<0.5) ng/mL Urine RBC (0-5/HPF) Urine WBC (0-5/HPF) Ur Squamous Epith Cells (0-5/HPF) Urine Bacteria (None) Urine Mucus (Negative) Ur Culture Indicated? SARS-CoV-2 (PCR) (Negative) Influenza A (RT-PCR) (NEGATIVE) Influenza B (RT-PCR) (NEGATIVE) RSV (PCR) (Negative) 03/26/23 03/26/23 03/26/23 Range/Units 16:05 16:05 16:05 WBC (4.5-11.0) X10^3/uL RBC (4.0-5.2) X10^6/uL Hgb (12.0-16.0) g/dL Hct (36-46) % MCV (80-100) fL MCH (26-34) PG MCHC (30-36) % RDW (11.6-14.8) % Plt Count (150-400) X10^3/uL Neut % (Auto) (50-75) % Lymph % (Auto) (25-40) % Wilkin % (Auto) (3-14) % Eos % (Auto) (2-4) % Baso % (Auto) (0-2) % Neut # (Auto) (8789-3275) /uL Lymph # (Auto) (2084-8909) /uL Wilkin # (Auto) (0-900) /uL Eos # (Auto) (0-450) /uL Baso # (Auto) (0-100) /uL Sodium (137-145) mmol/L Potassium (3.4-5.1) mmol/L Chloride (98-107) mmol/L Carbon Dioxide (22-32) mmol/L BUN (7-17) mg/dL Creatinine (0.52-1.04) mg/dL Estimated GFR (>60) mL/min BUN/Creatinine Ratio (6-22) Glucose (70-100) mg/dL Lactate 0.7 (0.7-2.1) mmol/L Calcium (8.4-10.2) mg/dL Magnesium (1.6-2.3) mg/dL Total Bilirubin (0.2-1.3) mg/dL AST (14-36) IU/L ALT (<35) IU/L Alkaline Phosphatase (38-126) U/L C-Reactive Protein 5.2 H (<1.0) mg/dL Total Protein (6.3-8.2) g/dL Albumin (3.5-5.0) g/dL Globulin (1.7-4.1) g/dL Albumin/Globulin Ratio (1.0-2.8) Lipase (23-300) U/L Procalcitonin 0.17 (<0.5) ng/mL Urine RBC (0-5/HPF) Urine WBC (0-5/HPF) Ur Squamous Epith Cells (0-5/HPF) Urine Bacteria (None) Urine Mucus (Negative) Ur Culture Indicated? SARS-CoV-2 (PCR) Negative (Negative) Influenza A (RT-PCR) Flu a negative (NEGATIVE) Influenza B (RT-PCR) Flu b negative (NEGATIVE) RSV (PCR) Negative (Negative) 05/06/23 Range/Units 16:40 WBC (4.5-11.0) X10^3/uL RBC (4.0-5.2) X10^6/uL Hgb (12.0-16.0) g/dL Hct (36-46) % MCV (80-100) fL MCH (26-34) PG MCHC (30-36) % RDW (11.6-14.8) % Plt Count (150-400) X10^3/uL Neut % (Auto) (50-75) % Lymph % (Auto) (25-40) % Wilkin % (Auto) (3-14) % Eos % (Auto) (2-4) % Baso % (Auto) (0-2) % Neut # (Auto) (5718-0078) /uL Lymph # (Auto) (4102-4589) /uL Wilkin # (Auto) (0-900) /uL Eos # (Auto) (0-450) /uL Baso # (Auto) (0-100) /uL Sodium (137-145) mmol/L Potassium (3.4-5.1) mmol/L Chloride (98-107) mmol/L Carbon Dioxide (22-32) mmol/L BUN (7-17) mg/dL Creatinine (0.52-1.04) mg/dL Estimated GFR (>60) mL/min BUN/Creatinine Ratio (6-22) Glucose (70-100) mg/dL Lactate (0.7-2.1) mmol/L Calcium (8.4-10.2) mg/dL Magnesium (1.6-2.3) mg/dL Total Bilirubin (0.2-1.3) mg/dL AST (14-36) IU/L ALT (<35) IU/L Alkaline Phosphatase (38-126) U/L C-Reactive Protein (<1.0) mg/dL Total Protein (6.3-8.2) g/dL Albumin (3.5-5.0) g/dL Globulin (1.7-4.1) g/dL Albumin/Globulin Ratio (1.0-2.8) Lipase (23-300) U/L Procalcitonin (<0.5) ng/mL Urine RBC None seen (0-5/HPF) Urine WBC 5-10/hpf H (0-5/HPF) Ur Squamous Epith Cells 1-5 /hpf (0-5/HPF) Urine Bacteria Moderate (10-30) H (None) Urine Mucus 1+ H (Negative) Ur Culture Indicated? Specimen cultured SARS-CoV-2 (PCR) (Negative) Influenza A (RT-PCR) (NEGATIVE) Influenza B (RT-PCR) (NEGATIVE) RSV (PCR) (Negative) Point of care testing: Urine Dip Bedside Urine Glucose Negative Bedside Urine Bilirubin + 1 Bedside Urine Ketone +++ 80 Urine Specific [place] 1.015 Bedside Urine Occult Blood - Negative Bedside Urine pH 6.5 Bedside Urine Protein +/- 15 Bedside Urine Urobilinogen 1+ 2mg Bedside Urine Nitrite - Negative Bedside Urine Leukocytes + 70 Esterase Discharge Plan Departure Patient Disposition: Admitted As Inpatient Clinical Impression: Acute pyelonephritis in second trimester, antepartum, Hypokalemia, Acute epigastric pain, Acute cholecystitis Cholelithiasis Qualifiers: Cholelithiasis location: gallbladder Cholecystitis presence: without cholecystitis Biliary obstruction: without biliary obstruction Qualified Code(s): K80.20 - Calculus of gallbladder without cholecystitis without obstruction Admit Date/Time: 03/26/23 17:14 Admit Provider: Diane Luis <Osmin Flores, - Last Filed: 03/26/23 17:58> Cosign ED Attending Cosignature Attestation: Dr Flores Co-Sign Statement: I was available for consultation during this patient's emergency department visit. This chart is signed by myself for administrative purposes only. I did not have direct contact with this patient during this visit. They were seen independently by the APC.
[2023-03-26 16:28] LABS: Add Manual Diff / Slide Review NO; Basophils Absolute Auto 0 /uL (0-100); Basophils Percent Auto 0.2 % (0-2); Eosinophils Absolute Auto 100 /uL (0-450); Eosinophils Percent Auto 1.8 % (2-4); Hematocrit 31.2 % (36-46); Lymphocytes Absolute Auto 900 /uL (1100-4500); Lymphocytes Percent Auto 15.3 % (25-40); Mean Corpuscular HGB Conc 35.2 % (30-36); Mean Corpuscular Hemoglobin 31.7 PG (26-34); Mean Corpuscular Volume 90.1 fL (80-100); Monocytes Absolute Auto 300 /uL (0-900); Monocytes Percent Auto 5.6 % (3-14); Neutrophils Absolute Auto 4800 /uL (1500-7000); Neutrophils Percent Auto 77.1 % (50-75); Platelet Count 221 X10^3/uL (150-400); Red Blood Cell Count 3.46 X10^6/uL (4.0-5.2); Red Cell Distribution Width 13.1 % (11.6-14.8); White Blood Cell Count 6.2 X10^3/uL (4.5-11.0)
[2023-03-26 16:40] LABS: Alanine Aminotransferase 12 IU/L (<35); Albumin 3.8 g/dL (3.5-5.0); Alkaline Phosphatase 58 U/L (38-126); Aspartate Aminotransferase 18 IU/L (14-36); BUN Creatinine Ratio 34.1 (6-22); Bilirubin Total 0.7 mg/dL (0.2-1.3); Blood Urea Nitrogen 15 mg/dL (7-17); Calcium 8.6 mg/dL (8.4-10.2); Carbon Dioxide 25 mmol/L (22-32); Chloride 99 mmol/L (98-107); Estimated Glomerular Filt Rate > 60 mL/min (>60); Globulin 3.8 g/dL (1.7-4.1); Glucose 96 mg/dL (70-100); HEMOLYSIS < 15 (0-50); Lipase 54 U/L (23-300); Potassium 3.2 mmol/L (3.4-5.1); Sodium 134 mmol/L (137-145); Total Protein 7.6 g/dL (6.3-8.2)
[2023-03-26 16:41] LABS: Magnesium 1.8 mg/dL (1.6-2.3)
[2023-03-26 16:44] LABS: C-Reactive Protein Quant 5.2 mg/dL (<1.0)
[2023-03-26] MEDS: PANTOPRAZOLE 40 MG VIAL IV (16:45)
[2023-03-26] MEDS: SODIUM CHLORIDE 0.9% 1,000 ML 1000 ML IV (16:45)
[2023-03-26 16:57] LABS: Procalcitonin 0.17 ng/mL (<0.5)
[2023-03-26] MEDS: POTASSIUM CHLORIDE 20 MEQ/15 ML UDC 40 MEQ PO (16:58)
[2023-03-26] MEDS: MAG HYDROX/ALUM/SIMETH 30 ML UDC PO (16:59)
[2023-03-26 17:03] LABS: Influenza A - CEPHEID Flu A NEGATIVE (NEGATIVE); Influenza B - CEPHEID Flu B NEGATIVE (NEGATIVE); Respiratory Syncytial Virus Negative (Negative)
[2023-03-26 17:03] LABS: Bacteria Urine Moderate (10-30); Mucus Urine 1+ (Negative); RBC Urine None Seen (0-5/HPF); Squamous Epithelial Cell Urine 1-5 /HPF (0-5/HPF); WBC Urine 5-10/HPF (0-5/HPF)
[2023-03-26 17:04] LABS: Culture Indicated Urine Specimen Cultured
[2023-03-26 17:13] LABS: COVID-19 CEPHEID 4-PLEX PCR Negative (Negative)
[2023-03-26 17:15] LABS: Lactate (Lactic Acid) 0.7 mmol/L (0.7-2.1)
[2023-03-26] MEDS: ACETAMINOPHEN 325 MG TABLET PO (17:36)
[2023-03-26] MEDS: HYDROCODONE/ACET 5/325 TABLET 1 TAB PO (17:37)
[2023-03-26] MEDS: cefTRIAXone 1,000 MG in SODIUM CHLORIDE 0.9% 100 ML 200 MG IV (17:37)
[2023-03-26] MEDS: LACTATED RINGERS 1,000 ML 1000 ML IV (17:39)
--- NOTE | 2023-03-26 17:48 | P.HPOB_ITS ---
History of Present Illness History of Present Illness Reason for admission: other (Pyelonephritis) Narrative: Jill Anderson is a 22 year old female 2 para 1 EDC 08/28/2023 prese nting to the emergency room complaining of abdominal pain. She also has nausea and vomiting. She was found to have low potassium and urinary tract infection and possible pyelonephritis. She is admitted for IV antibiotics. [facility] Medical History Asthma (~2002) Astigmatism (~2010) Encounter for IUD insertion (~07/22/21) H/O molluscum contagiosum (~10/30/20) Migraine without aura Vaginal delivery (~05/26/21) Surgical History [place] teeth extracted (~2018) Family History Mother No problems noted. Father No problems noted. Grandmother No problems noted. Grandfather No problems noted. Grandmother Diabetes mellitus Grandfather Family estrangement Social History marital status: number of children: 1 household members: spouse and children lives independently: Yes caregiver/support person: Yes housing: apartment pets and animals: Yes (2 dogs) education level: high school occupational status: employed (active duty cook) current occupational exposures/hazards: No jose/samaritan: Worship special jose needs: No travel history: recent (Domestic and [place] only) seatbelt use: always water heater temp set < 120 deg: Yes working smoke detector in home: Yes fire extinguisher in home: Yes carbon monox detector in home: Yes firearms in home: Yes firearms unloaded and locked: Yes do you feel safe at home: Yes Smoking Status: Never smoker second hand exposure: No alcohol intake: former (rarely when not ) substance use type: does not use during the past year weight has: remained stable well-balanced diet: about half the time daily servings fruits/ve-4 caffeine: Yes (1 soda every couple days. Aware of caffeine limits.) Type(s) of exercise: walking and other frequency: 3-4 times per week Meds Home Medications and Allergies Home Medications Medication Instructions Recorded Confirmed Type ferrous sulfate 250 mg (50 mg 250 mg PO DAILY 01/13/23 03/23/23 History iron) tablet,extended release prenat.vits,derian,qfr-knld-svyff 1 tab PO DAILY 01/13/23 03/23/23 History Allergies Allergy/AdvReac Type Severity Reaction Status Date / Time No Known Drug Allergies Allergy Verified 03/26/23 16:04 Review of Systems Review of Systems Narrative: Patient denies any significant headaches at this time although she does have a history of migraine headaches. She denies any chest pains or shortness of breath. She is having upper abdominal pain and nausea and vomiting. No vaginal bleeding. She has felt some movement. No fevers. Exam Vital Signs (past 8 hours): - 03/26/23 16:01 03/26/23 17:12 Temperature 97.8 F Pulse Rate 84 80 Respiratory Rate 16 14 Blood Pressure 101/62 Pulse Oximetry 100 99 Oxygen Delivery Method Room Air Room Air Oxygen Delivery Method Room Air Narrative Exam Narrative: HEENT exam within normal limits. Lungs are clear to auscultation percussion. Heart is regular rate and rhythm no S3-S4 murmurs. Patient does have some minimal CVA tenderness on the right side. Abdomen is soft, with patient stating some tenderness with palpation in her upper abdomen no tenderness in her lower abdomen. Uterus is approximately 18 week size and nontender. Extremities without edema and nontender. Objective Imaging US - abdomen: Radiologist's impression: [place] [address] Ultrasound Report Signed Patient: Jill Anderson MR#: [id number] : 2000 Acct:[id number] Age/Sex: 22 / F Date of Service: 03/26/23 Loc: 212-1 Accession Number: [id number] ?? Procedure: US abdomen limited Ordering Provider: Tamica Roach PROCEDURE:? US ABDOMEN LIMITED ? INDICATIONS:? Epigastric pain, 18 weeks , loose stool, vomiting ? TECHNIQUE:? Real-time scanning was performed of the right upper quadran, with image documentation.? ? COMPARISON:? None. ? FINDINGS:? ? Liver:? Liver is normal in size and homogeneous in echotexture.? ? Gallbladder:? Within the gallbladder there are numerous mobile stones.? Positive sonographic Steele sign per grounds maintenance manager.? No pericholecystic fluid.? Gallbladder wall measures 1.1 mm. ? Biliary ducts:? Intrahepatic bile ducts are non-dilated.? Extrahepatic bile duct caliber measures 2.3 mm.? Normal is 6-7 mm or less in diameter, or 10 mm or less post-cholecystectomy.? ? Pancreas:? Visualized portions of the pancreas are sonographically normal.? ? Miscellaneous:? No free abdominal fluid.? ? Other:? Live intrauterine .? heart rate of 157 beats per minute ? ? IMPRESSION:? 1. Cholelithiasis with positive sonographic Steele is highly suggestive of acute cholecystitis 2. Live intrauterine . ? Labs 03/26/23 16:05 03/26/23 16:05 Labs: Laboratory Results - last 24 hr 03/26/23 03/26/23 03/26/23 16:05 16:05 16:05 WBC 6.2 RBC 3.46 L Hgb 11.0 L Hct 31.2 L MCV 90.1 MCH 31.7 MCHC 35.2 RDW 13.1 Plt Count 221 Neut % (Auto) 77.1 H Lymph % (Auto) 15.3 L Esmeralda % (Auto) 5.6 Eos % (Auto) 1.8 L Baso % (Auto) 0.2 Neut # (Auto) 4800 Lymph # (Auto) 900 L Esmeralda # (Auto) 300 Eos # (Auto) 100 Baso # (Auto) 0 Sodium 134 L Potassium 3.2 L Chloride 99 Carbon Dioxide 25 BUN 15 Creatinine 0.44 L Estimated GFR > 60 BUN/Creatinine Ratio 34.1 H Glucose 96 Lactate Calcium 8.6 Magnesium 1.8 Total Bilirubin 0.7 AST 18 ALT 12 Alkaline Phosphatase 58 C-Reactive Protein Total Protein 7.6 Albumin 3.8 Globulin 3.8 Albumin/Globulin Ratio 1.0 Lipase 54 Procalcitonin Urine RBC Urine WBC Ur Squamous Epith Cells Urine Bacteria Urine Mucus Ur Culture Indicated? SARS-CoV-2 (PCR) Influenza A (RT-PCR) Influenza B (RT-PCR) RSV (PCR) 03/26/23 03/26/23 03/26/23 16:05 16:05 16:05 WBC RBC Hgb Hct MCV MCH MCHC RDW Plt Count Neut % (Auto) Lymph % (Auto) Esmeralda % (Auto) Eos % (Auto) Baso % (Auto) Neut # (Auto) Lymph # (Auto) Esmeralda # (Auto) Eos # (Auto) Baso # (Auto) Sodium Potassium Chloride Carbon Dioxide BUN Creatinine Estimated GFR BUN/Creatinine Ratio Glucose Lactate 0.7 Calcium Magnesium Total Bilirubin AST ALT Alkaline Phosphatase C-Reactive Protein 5.2 H Total Protein Albumin Globulin Albumin/Globulin Ratio Lipase Procalcitonin 0.17 Urine RBC Urine WBC Ur Squamous Epith Cells Urine Bacteria Urine Mucus Ur Culture Indicated? SARS-CoV-2 (PCR) Negative Influenza A (RT-PCR) Flu a negative Influenza B (RT-PCR) Flu b negative RSV (PCR) Negative 03/26/23 16:40 WBC RBC Hgb Hct MCV MCH MCHC RDW Plt Count Neut % (Auto) Lymph % (Auto) Esmeralda % (Auto) Eos % (Auto) Baso % (Auto) Neut # (Auto) Lymph # (Auto) Esmeralda # (Auto) Eos # (Auto) Baso # (Auto) Sodium Potassium Chloride Carbon Dioxide BUN Creatinine Estimated GFR BUN/Creatinine Ratio Glucose Lactate Calcium Magnesium Total Bilirubin AST ALT Alkaline Phosphatase C-Reactive Protein Total Protein Albumin Globulin Albumin/Globulin Ratio Lipase Procalcitonin Urine RBC None seen Urine WBC 5-10/hpf H Ur Squamous Epith Cells 1-5 /hpf Urine Bacteria Moderate (10-30) H Urine Mucus 1+ H Ur Culture Indicated? Specimen cultured SARS-CoV-2 (PCR) Influenza A (RT-PCR) Influenza B (RT-PCR) RSV (PCR) Assessment & Plan Assessment and plan (1) Acute pyelonephritis in second trimester, antepartum: Status: Acute (2) 18 weeks gestation of : Status: Acute (3) Low blood potassium: Status: Acute (4) Acute cholecystitis: Status: Acute Plan . Assessment & Plan narrative: 18 week gestation with possible acute pyelonephritis and low blood potassium. Patient receiving replacement therapy for potassium. She will be given ceftriaxone antibiotics and IV fluids. Urine culture pending. Patient also had an ultrasound of the upper abdomen that showed possible acute cholecystitis. The ER will contact General surgery for consult. COVID-19 COVID-19 status: Negative Result date/Date tested (Pos, Neg/Pending): 03/26/23 Time Spent With Patient Time with patient: less than 30 minutes
[2023-03-26] MEDS: LACTATED RINGERS 1,000 ML 100 ML IV (18:52)
--- NOTE | 2023-03-26 20:08 | PM.CALLCOV.1 ---
Call Coverage Note Note Date of Patient Contact: 03/26/23 Time of Patient Contact: 20:08 Narrative of Care Provided: 22F 18weeks gestation admitted for pyelonephritis. At admission had epigastric pain now resolved. U/S Abd-Gallstones no wall thickening or pericholecystitic fluid WBC 6 LFTs normal Afebrile Nontender on exam tolerating diet without issue. Likely pyelonephritis maybe biliary colic but nothing at this point to suggest acute cholecystitis -Diet as tolerated -Abx -F/u surgical clinic 2 weeks -Notify if clinic condition changes
[2023-03-26] MEDS: ACETAMINOPHEN 325 MG TABLET 650 MG PO (23:41)
[2023-03-27 00:15] VITALS: BP 86/46; PULSE 81; RESP 16; TEMP 36; O2SAT 100
--- NOTE | 2023-03-27 00:41 | PC.NURSE ---
Pt A&Ox4, pain managed by Tylenol. BP at 0000 vitals 86/46, Dr. Luis notified. No additional orders at this time.
--- NOTE | 2023-03-27 00:56 | PC.NURSE ---
@0015 auscultated FHT's per charge AC nurse. 145-150. Keely Gilmore RN
[2023-03-27] MEDS: LACTATED RINGERS 1,000 ML 100 ML IV ×2 (04:11→14:14)
--- NOTE | 2023-03-27 04:12 | PC.NURSE ---
FHT 150's via doptone
[2023-03-27] MEDS: OXYCODONE IR 5 MG TABLET PO ×2 (04:16→18:00)
[2023-03-27 04:18] VITALS: BP 89/46; PULSE 83; RESP 16; TEMP 36.3; O2SAT 98
[2023-03-27] MEDS: ACETAMINOPHEN 325 MG TABLET 650 MG PO ×2 (05:25→12:16)
[2023-03-27 06:36] LABS: Add Manual Diff / Slide Review NO; Basophils Absolute Auto 0 /uL (0-100); Basophils Percent Auto 0.4 % (0-2); Eosinophils Absolute Auto 100 /uL (0-450); Eosinophils Percent Auto 3.8 % (2-4); Hematocrit 26.3 % (36-46); Hemoglobin 9.2 g/dL (12.0-16.0); Lymphocytes Absolute Auto 1000 /uL (1100-4500); Lymphocytes Percent Auto 27.5 % (25-40); Mean Corpuscular Hemoglobin 31.8 PG (26-34); Monocytes Absolute Auto 300 /uL (0-900); Monocytes Percent Auto 8.9 % (3-14); Neutrophils Absolute Auto 2200 /uL (1500-7000); Neutrophils Percent Auto 59.4 % (50-75); Platelet Count 188 X10^3/uL (150-400); Red Blood Cell Count 2.89 X10^6/uL (4.0-5.2); Red Cell Distribution Width 13.4 % (11.6-14.8); White Blood Cell Count 3.7 X10^3/uL (4.5-11.0)
[2023-03-27 06:47] LABS: Carbon Dioxide 23 mmol/L (22-32); Chloride 106 mmol/L (98-107); HEMOLYSIS < 15 (0-50); Potassium 3.6 mmol/L (3.4-5.1); Sodium 134 mmol/L (137-145)
[2023-03-27 08:00] VITALS: BP 94/52; PULSE 90; RESP 16; TEMP 36.6; O2SAT 98
--- NOTE | 2023-03-27 08:06 | P.PN_ITS ---
Subjective Subjective Date Patient Seen: 03/27/23 Time Patient Seen: 08:06 Interval history: Patient states her nausea is improving but not gone. Her upper abdominal pain is improving but not gone. She continues to have pain in her back in the left kidney area. Exam Vital Signs (past 8 hours): - 03/27/23 00:15 03/27/23 04:18 Temperature 96.8 F L 97.3 F L Pulse Rate 81 83 Respiratory Rate 16 16 Blood Pressure 86/46 L 89/46 L Pulse Oximetry 100 98 Oxygen Flow Rate 0 0 Oxygen Delivery Method Room Air Oxygen Flow Rate 0 Narrative Exam Narrative: Patient's abdomen is soft, minimal upper abdominal tenderness, no uterine tenderness. Minimal CVA tenderness on the left side. Extremities without edema and nontender. Objective Labs 03/27/23 05:25 03/27/23 05:25 Labs: Laboratory Results - last 24 hr 03/26/23 03/26/23 03/26/23 16:05 16:05 16:05 WBC 6.2 RBC 3.46 L Hgb 11.0 L Hct 31.2 L MCV 90.1 MCH 31.7 MCHC 35.2 RDW 13.1 Plt Count 221 Neut % (Auto) 77.1 H Lymph % (Auto) 15.3 L [place] % (Auto) 5.6 Eos % (Auto) 1.8 L Baso % (Auto) 0.2 Neut # (Auto) 4800 Lymph # (Auto) 900 L [place] # (Auto) 300 Eos # (Auto) 100 Baso # (Auto) 0 Sodium 134 L Potassium 3.2 L Chloride 99 Carbon Dioxide 25 BUN 15 Creatinine 0.44 L Estimated GFR > 60 BUN/Creatinine Ratio 34.1 H Glucose 96 Lactate Calcium 8.6 Magnesium 1.8 Total Bilirubin 0.7 AST 18 ALT 12 Alkaline Phosphatase 58 C-Reactive Protein Total Protein 7.6 Albumin 3.8 Globulin 3.8 Albumin/Globulin Ratio 1.0 Lipase 54 Procalcitonin Urine RBC Urine WBC Ur Squamous Epith Cells Urine Bacteria Urine Mucus Ur Culture Indicated? SARS-CoV-2 (PCR) Influenza A (RT-PCR) Influenza B (RT-PCR) RSV (PCR) 03/26/23 03/26/23 03/26/23 16:05 16:05 16:05 WBC RBC Hgb Hct MCV MCH MCHC RDW Plt Count Neut % (Auto) Lymph % (Auto) [place] % (Auto) Eos % (Auto) Baso % (Auto) Neut # (Auto) Lymph # (Auto) [place] # (Auto) Eos # (Auto) Baso # (Auto) Sodium Potassium Chloride Carbon Dioxide BUN Creatinine Estimated GFR BUN/Creatinine Ratio Glucose Lactate 0.7 Calcium Magnesium Total Bilirubin AST ALT Alkaline Phosphatase C-Reactive Protein 5.2 H Total Protein Albumin Globulin Albumin/Globulin Ratio Lipase Procalcitonin 0.17 Urine RBC Urine WBC Ur Squamous Epith Cells Urine Bacteria Urine Mucus Ur Culture Indicated? SARS-CoV-2 (PCR) Negative Influenza A (RT-PCR) Flu a negative Influenza B (RT-PCR) Flu b negative RSV (PCR) Negative 03/26/23 03/27/23 03/27/23 16:40 05:25 05:25 WBC 3.7 L RBC 2.89 L Hgb 9.2 L Hct 26.3 L MCV 91.0 MCH 31.8 MCHC 35.0 RDW 13.4 Plt Count 188 Neut % (Auto) 59.4 Lymph % (Auto) 27.5 [place] % (Auto) 8.9 Eos % (Auto) 3.8 Baso % (Auto) 0.4 Neut # (Auto) 2200 Lymph # (Auto) 1000 L [place] # (Auto) 300 Eos # (Auto) 100 Baso # (Auto) 0 Sodium 134 L Potassium 3.6 Chloride 106 Carbon Dioxide 23 BUN Creatinine Estimated GFR BUN/Creatinine Ratio Glucose Lactate Calcium Magnesium Total Bilirubin AST ALT Alkaline Phosphatase C-Reactive Protein Total Protein Albumin Globulin Albumin/Globulin Ratio Lipase Procalcitonin Urine RBC None seen Urine WBC 5-10/hpf H Ur Squamous Epith Cells 1-5 /hpf Urine Bacteria Moderate (10-30) H Urine Mucus 1+ H Ur Culture Indicated? Specimen cultured SARS-CoV-2 (PCR) Influenza A (RT-PCR) Influenza B (RT-PCR) RSV (PCR) [facility] Medical History Asthma (~2002) Astigmatism (~2010) Encounter for IUD insertion (~07/22/21) H/O molluscum contagiosum (~10/30/20) Migraine without aura Vaginal delivery (~05/26/21) Surgical History [place] teeth extracted (~2019) Family History Mother No problems noted. Father No problems noted. Grandmother No problems noted. Grandfather No problems noted. Grandmother Diabetes mellitus Grandfather Family estrangement Social History marital status: number of children: 1 household members: spouse and children lives independently: Yes caregiver/support person: Yes housing: apartment pets and animals: Yes (2 dogs) education level: high school occupational status: employed (active duty cook) current occupational exposures/hazards: No jose/rastafarian: Moravian special jose needs: No travel history: recent (Domestic and [place] only) seatbelt use: always water heater temp set < 120 deg: Yes working smoke detector in home: Yes fire extinguisher in home: Yes carbon monox detector in home: Yes firearms in home: Yes firearms unloaded and locked: Yes do you feel safe at home: Yes Smoking Status: Never smoker second hand exposure: No alcohol intake: former substance use type: does not use during the past year weight has: remained stable well-balanced diet: about half the time daily servings fruits/ve-4 caffeine: Yes (1 soda every couple days. Aware of caffeine limits.) Type(s) of exercise: walking and other frequency: 3-4 times per week Assessment & Plan Assessment and plan (1) Anemia affecting : Qualifiers: Trimester: unspecified trimester Qualified Code(s): O99.019 - Anemia complicating , unspecified trimester Status: Acute (2) Low blood potassium: Status: Acute (3) 18 weeks gestation of : Status: Acute (4) Acute pyelonephritis in second trimester, antepartum: Status: Acute (5) Cholelithiasis: Qualifiers: Biliary obstruction: without biliary obstruction Cholecystitis presence: without cholecystitis Cholelithiasis location: gallbladder Qualified Code(s): K80.20 - Calculus of gallbladder without cholecystitis without obstruction Status: Acute Assessment & Plan narrative: Patient's symptoms are improving. Patient's potassium has gone into the normal range with replacement. Patient is afebrile and white count is normal. She has increasing evidence of anemia. Will treat with IV iron. Urine and blood cultures pending. Will discharge after her next IV antibiotic dose if continues stable. She will follow-up with General surgery in 2 weeks for her cholelithiasis. Follow-up with OB in 1 week. Quality VTE Deep Vein Thrombosis/Pulmonary Embolism Present on Admission: No
[2023-03-27] MEDS: IRON SUCROSE 100 MG in SODIUM CHLORIDE 0.9% 100 ML 420 MG IV (09:22)
--- NOTE | 2023-03-27 10:45 | CM.DANOTE ---
Addendum entered by OBI Dupree 03/27/23 14:39: ADD: SW saw Dr. Luis outside pt room after rounding again and she confirms pt will be able to d/c home this evening after 1700 dose of IV-Abx and no barriers to d/c. BF Original Note: Patient is a 22 yo female who was admitted on 03/26/23 for Stomach Pains/. Pt has [employer] for insurance and her PCP is on the [facility]. EMR was reviewed. Per OBGYN, pt 18 weeks and admitted for acute pyelonephritis and acute cholecystitis and receiving IV-Abx and urine culture pending. Per OBGYN, pt likely may be stable for d/c home tonight after final dose of IV-Abx and medications. SW met bedside with pt and spouse and explained role and they confirm they live in [place] in an apt and both are active and independent and working at baseline. Pt confirms she has one child at home and this is her second and they feel they have their basic needs met and no d/c concerns at this time and hopeful to be home by tonight and spouse plans to transport. SW inquired about a visiting nurse and pt confirms that the only concerns with her first delivery/baby was difficulty with breast feeding. Pt agreeable to a referral to the [facility] Visiting Nurse Lilliam for follow up after discharge home and ultimately for post delivery and support with nursing. SW made referral and sent clinicals to Lilliam Rogers for review to follow up with pt after discharge. Plan: SW to follow for plan of likely d/c home via spouse POV tonight around [id number] after final IV-Abx dose and to d/c on orals. 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 No Advance Directives on File No History Provided By Patient,Significant Other, Medical Record Has Patient been admitted in last 30 No days? Prior Living Arrangements Apartment/Condo Household Members spouse,children Type of transporation used prior to Drives own vehicle admit Independent with ADL's Yes Is patient alert and oriented? Yes Caregiver for Another Yes: one child at home, currently with second Barriers to Discharge No Discharge Plan Home Transportation Arrangement Spouse bedside and can transport Referrals Initiated Other Additional Comment Referral to [facility] [place] Visiting RN for post delivery/ Whiteboard Updated in Patient Room with Yes name and ext. # of Cdl Flatbed Truck Driver Review Status In Process Please Provide Date Initial DC 03/27/23 Assessment Was Performed Next Review Type Continued Stay Review
--- NOTE | 2023-03-27 11:02 | PC.NURSE ---
Addendum entered by Miladys Wright R.N. 03/27/23 13:31: Patient complained of pain to her upper abdomen, given tylenol for comfort and is tolerating her lunch. Original Note: Assess- Patient denies pain. OB RN up to do heart tones. She states that they were wnl. She was just given and iron infusion and is resting comfortably. at bedside and patient resting. Ate some breakfast and denies any nausea.
--- NOTE | 2023-03-27 11:26 | PC.NURSE ---
1030- FHTs ascultated x190 seconds. Baseline 140, normal rhythm. No audible decelerations heard
[2023-03-27 12:31] VITALS: BP 91/47; PULSE 77; RESP 18; TEMP 36.8; O2SAT 99
--- NOTE | 2023-03-27 14:35 | PM.DS.1 ---
History of Present Illness History of Present Illness Date Patient Seen: 03/27/23 Time Patient Seen: 14:36 Chief complaint: Stomach cramps Narrative: upper abdominal pain, nausea and vomiting c Discharge Providers Provider Date of admission: 03/26/23 17:14 Discharge Date: 03/27/23 Primary care physician: Adi LUGO Provider Discharge provider: Diane Luis MD Summary Hospital Course Discharge Diagnosis: Pyelonephritis in at 18 weeks with cholelithiasis Hospital Course: Patient was admitted from the emergency room for pyelonephritis and replenishment low potassium. She was also diagnosed with cholelithiasis Status at Discharge Cognitive/behavioral status at discharge: oriented Functional status at discharge: independent ambulation Overall status at discharge: patient is progressing back to baseline Time Spent with Patient Time spent: Less than 30 minutes Exam Vital Signs (past 8 hours): - 03/27/23 08:00 03/27/23 07:00 03/27/23 12:31 Temperature 98 F 98.3 F Pulse Rate 90 77 Respiratory Rate 16 18 Blood Pressure 94/52 L 91/47 L Pulse Oximetry 98 99 Oxygen Delivery Method Room Air Oxygen Flow Rate 0 0 Oxygen Delivery Method Room Air Oxygen Flow Rate 0 Narrative Exam Narrative: Patient continues to have some mild upper abdominal tenderness. Mild tenderness of her back, left greater than right. Uterus is nontender and appropriate size for 18 weeks. Extremities without edema and nontender. Objective Labs 03/27/23 05:25 03/27/23 05:25 Labs: Laboratory Results - last 24 hr 03/26/23 03/26/23 03/26/23 16:05 16:05 16:05 WBC 6.2 RBC 3.46 L Hgb 11.0 L Hct 31.2 L MCV 90.1 MCH 31.7 MCHC 35.2 RDW 13.1 Plt Count 221 Neut % (Auto) 77.1 H Lymph % (Auto) 15.3 L [place] % (Auto) 5.6 Eos % (Auto) 1.8 L Baso % (Auto) 0.2 Neut # (Auto) 4800 Lymph # (Auto) 900 L [place] # (Auto) 300 Eos # (Auto) 100 Baso # (Auto) 0 Sodium 134 L Potassium 3.2 L Chloride 99 Carbon Dioxide 25 BUN 15 Creatinine 0.44 L Estimated GFR > 60 BUN/Creatinine Ratio 34.1 H Glucose 96 Lactate Calcium 8.6 Magnesium 1.8 Total Bilirubin 0.7 AST 18 ALT 12 Alkaline Phosphatase 58 C-Reactive Protein Total Protein 7.6 Albumin 3.8 Globulin 3.8 Albumin/Globulin Ratio 1.0 Lipase 54 Procalcitonin Urine RBC Urine WBC Ur Squamous Epith Cells Urine Bacteria Urine Mucus Ur Culture Indicated? SARS-CoV-2 (PCR) Influenza A (RT-PCR) Influenza B (RT-PCR) RSV (PCR) 03/26/23 03/26/23 03/26/23 16:05 16:05 16:05 WBC RBC Hgb Hct MCV MCH MCHC RDW Plt Count Neut % (Auto) Lymph % (Auto) [place] % (Auto) Eos % (Auto) Baso % (Auto) Neut # (Auto) Lymph # (Auto) [place] # (Auto) Eos # (Auto) Baso # (Auto) Sodium Potassium Chloride Carbon Dioxide BUN Creatinine Estimated GFR BUN/Creatinine Ratio Glucose Lactate 0.7 Calcium Magnesium Total Bilirubin AST ALT Alkaline Phosphatase C-Reactive Protein 5.2 H Total Protein Albumin Globulin Albumin/Globulin Ratio Lipase Procalcitonin 0.17 Urine RBC Urine WBC Ur Squamous Epith Cells Urine Bacteria Urine Mucus Ur Culture Indicated? SARS-CoV-2 (PCR) Negative Influenza A (RT-PCR) Flu a negative Influenza B (RT-PCR) Flu b negative RSV (PCR) Negative 03/26/23 03/27/23 03/27/23 16:40 05:25 05:25 WBC 3.7 L RBC 2.89 L Hgb 9.2 L Hct 26.3 L MCV 91.0 MCH 31.8 MCHC 35.0 RDW 13.4 Plt Count 188 Neut % (Auto) 59.4 Lymph % (Auto) 27.5 [place] % (Auto) 8.9 Eos % (Auto) 3.8 Baso % (Auto) 0.4 Neut # (Auto) 2200 Lymph # (Auto) 1000 L [place] # (Auto) 300 Eos # (Auto) 100 Baso # (Auto) 0 Sodium 134 L Potassium 3.6 Chloride 106 Carbon Dioxide 23 BUN Creatinine Estimated GFR BUN/Creatinine Ratio Glucose Lactate Calcium Magnesium Total Bilirubin AST ALT Alkaline Phosphatase C-Reactive Protein Total Protein Albumin Globulin Albumin/Globulin Ratio Lipase Procalcitonin Urine RBC None seen Urine WBC 5-10/hpf H Ur Squamous Epith Cells 1-5 /hpf Urine Bacteria Moderate (10-30) H Urine Mucus 1+ H Ur Culture Indicated? Specimen cultured SARS-CoV-2 (PCR) Influenza A (RT-PCR) Influenza B (RT-PCR) RSV (PCR) [facility] Medical History Asthma (~2002) Astigmatism (~2010) Encounter for IUD insertion (~07/22/21) H/O molluscum contagiosum (~10/30/20) Migraine without aura Vaginal delivery (~05/26/21) Surgical History [place] teeth extracted (~2018) Family History Mother No problems noted. Father No problems noted. Grandmother No problems noted. Grandfather No problems noted. Grandmother Diabetes mellitus Grandfather Family estrangement Social History marital status: number of children: 1 household members: spouse and children lives independently: Yes caregiver/support person: Yes housing: apartment pets and animals: Yes (2 dogs) education level: high school occupational status: employed (active duty cook) current occupational exposures/hazards: No jose/mormon: [employer] special jose needs: No travel history: recent (Domestic and [place] only) seatbelt use: always water heater temp set < 120 deg: Yes working smoke detector in home: Yes fire extinguisher in home: Yes carbon monox detector in home: Yes firearms in home: Yes firearms unloaded and locked: Yes do you feel safe at home: Yes Smoking Status: Never smoker second hand exposure: No alcohol intake: former substance use type: does not use during the past year weight has: remained stable well-balanced diet: about half the time daily servings fruits/ve-4 caffeine: Yes (1 soda every couple days. Aware of caffeine limits.) Type(s) of exercise: walking and other frequency: 3-4 times per week Discharge Assessment & Plan Assessment and Plan Assessment: Patient admitted for pyelonephritis at 18 weeks gestation who has remained afebrile and a normal white blood cell count. She received 1 dose of ceftriaxone and will go home after receiving a 2nd dose. Her low potassium has been replaced. Plan of Treatment: Patient will be discharged home after her 2nd dose of ceftriaxone. She will start on cephalexin b.i.d. until culture results are returned. She will follow-up in 1 week for her OB visit and in 2 weeks to be evaluated further by General surgery for cholelithiasis. Discharge Plan Discharge Plan Patient Disposition: Home Discharge orders & Medications Prescriptions: New cephalexin 500 mg capsule 500 mg PO BID Qty: 14 0RF Continued prenat.vits,derian,[id number]-lodl-[id number] Tablet 1 tab PO DAILY ferrous sulfate 250 mg (50 mg iron) tablet extended release 250 mg PO DAILY Follow up/Referrals: Diane Luis MD [Physician] - 1 Week (Follow-up pyelonephritis) Surya Cottrell MD [Physician] - 2 Weeks (Follow-up cholelithiasis) ProviderAdi [Primary Care Provider] - Diet/Activity/Treatments Diet: Regular Skin/Wound/Dressing Care Report to your healthcare provider any signs of infection, such as:: chills, fever and increased pain Visit Report/Discharge Packet Stand Alone Forms: Patient Portal/API, Work Release Note Discharge Data Primary Care Provider: Adi Yeung Quality VTE Deep Vein Thrombosis/Pulmonary Embolism Present on Admission: No
[2023-03-27 16:41] VITALS: BP 92/46; PULSE 77; RESP 18; TEMP 37.2; O2SAT 97
[2023-03-27] MEDS: cefTRIAXone 1,000 MG in SODIUM CHLORIDE 0.9% 100 ML 200 MG IV (18:03)
--- NOTE | 2023-03-27 18:11 | PC.NURSE ---
1555- FHTs ascultated x190 seconds. 145-153, normal rhythm. No audible decelerations heard.
== END 2023-03-27 19:00 | disposition home or self-care (01) | DRG 832 ==
LOC: ED 17:13 → AC 17:14
PROVIDERS: Emergency Medicine; Admitting Provider Specialist; Emergency Provider Nurse Practitioner Critical Care Medicine; PCP Family Medicine; Referring Provider Nurse Practitioner Critical Care Medicine; Visit Provider Specialist
DX: O23.02 Infections of kidney in pregnancy, second trimester (principal); K80.00 Calculus of gallbladder with acute cholecystitis without obstruction; N10 Acute pyelonephritis; O26.892 Other specified pregnancy related conditions, second trimester; O99.612 Diseases of the digestive system complicating pregnancy, second trimester; O99.012 Anemia complicating pregnancy, second trimester; E87.6 Hypokalemia; Z20.822 Contact with and (suspected) exposure to COVID-19; Z3A.18 18 weeks gestation of pregnancy
CPT/HCPCS: 0241U; 36415; 76705; 80051; 80053; 81003; 81015; 83605; 83690; 83735; 84145; 85025; 86140; 87040; 87086; 96365; 96375; 99222; 99238; 99284; 99285; C9113; J0696; J1756

== ENCOUNTER 2023-04-13 01:51 | Emergency (ER) | payer OTHER, SELFPAY ==
[2023-03-26 18:10] VITALS: BMI 22.3
[2023-04-13 01:54] VITALS: BP 101/58; PULSE 85; RESP 16; TEMP 36.6; O2SAT 97; BMI 23.1
--- NOTE | 2023-04-13 02:07 | ED_ITS ---
HPI - General Adult General Chief complaint: Abdominal Pain Stated complaint: possible gall bladder attack Time Seen by Provider: 04/13/23 01:54 Source: patient and family Mode of arrival: Ambulatory History of Present Illness HPI narrative: Patient is a 22-year-old female who is approximately 20 weeks EGA who has known gallbladder pathology. Is scheduled for outpatient gallbladder surgery on Tuesday of this week who is evening had some pulled pork and then later on his evening went on started have right upper quadrant abdominal pain. With the time of evaluation she states she is feeling much better. No fevers. No vomiting. No vaginal bleeding. Related Data Home Medications Medication Instructions Recorded Confirmed ferrous sulfate 250 mg (50 mg 250 mg PO DAILY 01/13/23 04/07/23 iron) tablet,extended release prenat.vits,derian,pnk-nzmo-tzdzl 1 tab PO DAILY 01/13/23 04/07/23 Previous Rx's Medication Instructions Recorded cephalexin 500 mg capsule 500 mg PO BID Infection #14 caps 03/27/23 Allergies Allergy/AdvReac Type Severity Reaction Status Date / Time No Known Drug Allergies Allergy Verified 04/07/23 10:56 Review of Systems Constitutional Constitutional: Reports system reviewed and no additional complaints, except as documented Respiratory Respiratory: Reports system reviewed and no additional complaints, except as documented Gastrointestinal Gastrointestinal: Reports system reviewed and no additional complaints, except as documented Genitourinary Genitourinary: Reports system reviewed and no additional complaints, except as documented Integumentary/Breasts Skin/Breast: Reports system reviewed and no additional complaints, except as documented Hematologic/Lymphatic On Anticoagulants: No Patient History Medical History Asthma (~2002) Astigmatism (~2010) Encounter for IUD insertion (~07/22/21) H/O molluscum contagiosum (~10/30/20) Migraine without aura Vaginal delivery (~05/26/21) Surgical History [place] teeth extracted (~2018) Family History Mother No problems noted. Father No problems noted. Grandmother No problems noted. Grandfather No problems noted. Grandmother Diabetes mellitus Grandfather Family estrangement Social History marital status: number of children: 1 household members: spouse and children lives independently: Yes caregiver/support person: Yes housing: apartment pets and animals: Yes (2 dogs) education level: high school occupational status: employed (active duty cook) current occupational exposures/hazards: No jose/islam: Muslim special jose needs: No travel history: recent (Domestic and [place] only) seatbelt use: always water heater temp set < 120 deg: Yes working smoke detector in home: Yes fire extinguisher in home: Yes carbon monox detector in home: Yes firearms in home: Yes firearms unloaded and locked: Yes do you feel safe at home: Yes Smoking Status: Never smoker second hand exposure: No alcohol intake: former substance use type: does not use during the past year weight has: remained stable well-balanced diet: about half the time daily servings fruits/ve-4 caffeine: Yes (1 soda every couple days. Aware of caffeine limits.) Type(s) of exercise: walking and other frequency: 3-4 times per week Smoking Status: Never smoker alcohol intake frequency: holidays/special occasions only Substance Use Type: does not use Exam Initial Vital Signs Initial Vital Signs: Vital Signs Temperature 98 F 04/13/23 01:54 Pulse Rate 85 04/13/23 01:54 Respiratory Rate 16 04/13/23 01:54 Blood Pressure 101/58 L 04/13/23 01:54 Pulse Oximetry 97 04/13/23 01:54 Oxygen Delivery Method Room Air 04/13/23 01:54 HENMT Head: normal to inspection and normocephalic Resp Effort & Inspection: normal respiratory effort Cardio Rate: regular rate GI Inspection: normal to inspection Palpation: soft, No firm and tender Skin General: no rashes or lesions noted Course Orders Ordered: ED Orders 04/13/23 02:15 Complete Blood Count AUTO DIFF Stat Comprehensive Metabolic Panel Stat Lipase Stat Vital Signs Vital signs: Vital Signs - 8 hr 04/13/23 01:54 Temperature 98 F Pulse Rate 85 Respiratory Rate 16 Blood Pressure 101/58 L Pulse Oximetry 97 Oxygen Delivery Method Room Air Medical Decision Making Lab Data Lab results reviewed: Yes I reviewed the patient's lab results. 04/13/23 02:15 04/13/23 02:15 Labs: Lab Results 04/13/23 04/13/23 Range/Units 02:15 02:15 WBC 9.7 (4.5-11.0) X10^3/uL RBC 3.31 L (4.0-5.2) X10^6/uL Hgb 10.8 L (12.0-16.0) g/dL Hct 30.6 L (36-46) % MCV 92.4 (80-100) fL MCH 32.7 (26-34) PG MCHC 35.4 (30-36) % RDW 14.3 (11.6-14.8) % Plt Count 252 (150-400) X10^3/uL Neut % (Auto) 66.8 (50-75) % Lymph % (Auto) 21.4 L (25-40) % [place] % (Auto) 5.8 (3-14) % Eos % (Auto) 5.5 H (2-4) % Baso % (Auto) 0.5 (0-2) % Neut # (Auto) 6500 (0528-1793) /uL Lymph # (Auto) 2100 (0783-0320) /uL [place] # (Auto) 600 (0-900) /uL Eos # (Auto) 500 H (0-450) /uL Baso # (Auto) 0 (0-100) /uL Sodium 135 L (137-145) mmol/L Potassium 3.6 (3.4-5.1) mmol/L Chloride 105 (98-107) mmol/L Carbon Dioxide 23 (22-32) mmol/L BUN 9 (7-17) mg/dL Creatinine 0.56 (0.52-1.04) mg/dL Estimated GFR > 60 (>60) mL/min BUN/Creatinine Ratio 16.1 (6-22) Glucose 106 H (70-100) mg/dL Calcium 8.6 (8.4-10.2) mg/dL Total Bilirubin 0.5 (0.2-1.3) mg/dL AST 15 (14-36) IU/L ALT 13 (<35) IU/L Alkaline Phosphatase 54 (38-126) U/L Total Protein 7.4 (6.3-8.2) g/dL Albumin 3.8 (3.5-5.0) g/dL Globulin 3.6 (1.7-4.1) g/dL Albumin/Globulin Ratio 1.1 (1.0-2.8) Lipase 82 (23-300) U/L Urine Dip Bedside Urine Glucose Negative Bedside Urine Bilirubin - Negative Bedside Urine Ketone - Negative Urine Specific [place] 1.015 Bedside Urine Occult Blood - Negative Bedside Urine pH 7.0 Bedside Urine Protein - Negative Bedside Urine Urobilinogen - Negative Bedside Urine Nitrite - Negative Bedside Urine Leukocytes - Negative Esterase Point of care testing: Urine Dip Bedside Urine Glucose Negative Bedside Urine Bilirubin - Negative Bedside Urine Ketone - Negative Urine Specific [place] 1.015 Bedside Urine Occult Blood - Negative Bedside Urine pH 7.0 Bedside Urine Protein - Negative Bedside Urine Urobilinogen - Negative Bedside Urine Nitrite - Negative Bedside Urine Leukocytes - Negative Esterase MDM Narrative Medical decision making narrative: Bedside ultrasound shows intrauterine with a heart rate of 148 beats per minute and also movement. This is performed by myself. Her lab work today shows no changes in her liver function tests. She states she is feeling somewhat better from the onset of her discomfort. Plan will be is to discharge patient home and have her continue with the plan of an outpatient cholecystectomy done later this week. She was given return precautions and follow-up instructions. She expressed understanding and agreement. Discharge Plan Departure Patient Disposition: Home Clinical Impression: Biliary colic Instructions: DI for Abdominal Pain-Adult Activity Restrictions/Additional Instructions: Recommend that you continue to take all of your medications as directed and follow on proved surgery instructions given to you by the general surgeon with the anticipation of surgery on Tuesday this week. Return to the emergency department for new or worsening symptoms. Prescriptions: No Action prenat.vits,derian,phe-mgmw-rhybw Tablet 1 tab PO DAILY ferrous sulfate 250 mg (50 mg iron) tablet extended release 250 mg PO DAILY cephalexin 500 mg capsule 500 mg PO BID Qty: 14 0RF Referrals: Isael Howe DO [Primary Care Provider] - Stand Alone Forms: Patient Portal/API
[2023-04-13 02:35] LABS: Add Manual Diff / Slide Review NO; Basophils Absolute Auto 0 /uL (0-100); Basophils Percent Auto 0.5 % (0-2); Eosinophils Absolute Auto 500 /uL (0-450); Eosinophils Percent Auto 5.5 % (2-4); Hematocrit 30.6 % (36-46); Hemoglobin 10.8 g/dL (12.0-16.0); Lymphocytes Absolute Auto 2100 /uL (1100-4500); Lymphocytes Percent Auto 21.4 % (25-40); Mean Corpuscular HGB Conc 35.4 % (30-36); Mean Corpuscular Hemoglobin 32.7 PG (26-34); Mean Corpuscular Volume 92.4 fL (80-100); Monocytes Absolute Auto 600 /uL (0-900); Monocytes Percent Auto 5.8 % (3-14); Neutrophils Absolute Auto 6500 /uL (1500-7000); Neutrophils Percent Auto 66.8 % (50-75); Platelet Count 252 X10^3/uL (150-400); Red Blood Cell Count 3.31 X10^6/uL (4.0-5.2); Red Cell Distribution Width 14.3 % (11.6-14.8); White Blood Cell Count 9.7 X10^3/uL (4.5-11.0)
[2023-04-13 02:36] LABS: Alanine Aminotransferase 13 IU/L (<35); Albumin 3.8 g/dL (3.5-5.0); Albumin Globulin Ratio 1.1 (1.0-2.8); Alkaline Phosphatase 54 U/L (38-126); Aspartate Aminotransferase 15 IU/L (14-36); BUN Creatinine Ratio 16.1 (6-22); Bilirubin Total 0.5 mg/dL (0.2-1.3); Blood Urea Nitrogen 9 mg/dL (7-17); Calcium 8.6 mg/dL (8.4-10.2); Carbon Dioxide 23 mmol/L (22-32); Chloride 105 mmol/L (98-107); Estimated Glomerular Filt Rate > 60 mL/min (>60); Globulin 3.6 g/dL (1.7-4.1); Glucose 106 mg/dL (70-100); HEMOLYSIS < 15 (0-50); Lipase 82 U/L (23-300); Potassium 3.6 mmol/L (3.4-5.1); Sodium 135 mmol/L (137-145); Total Protein 7.4 g/dL (6.3-8.2)
[2023-04-13 03:02] VITALS: BP 105/58; PULSE 86; RESP 16; O2SAT 98
== END 2023-04-13 03:09 | disposition home or self-care (01) ==
PROVIDERS: Emergency Provider Emergency Medicine; PCP Family Medicine
DX: K80.50 Calculus of bile duct without cholangitis or cholecystitis without obstruction (principal)
CPT/HCPCS: 36415; 80053; 81003; 83690; 85025; 99283

== ENCOUNTER 2023-04-15 13:31 | Day surgery (SDC) | payer OTHER, SELFPAY ==
[2023-03-26 18:10] VITALS: BMI 22.3
[2023-04-13 09:34] VITALS: BMI 23.0
[2023-04-15] VITALS (9 sets, daily range): BP systolic 97–123; BP diastolic 64–83; PULSE 90–116; RESP 11–171; TEMP 36.3–36.6; O2SAT 98–100; BMI 23.0
--- NOTE | 2023-04-15 | PATH_ITS ---
[facility] Accession Number: [id number] No. of containers..01 Tissue . 01 Material submitted: . gallbladder - GALLBLADDER . 01 Diagnosis: Gallbladder, Cholecystectomy: Chronic cholecystitis and cholelithiasis. MRV 04/25/2023 1244 Local . 01 Electronically signed: . Josefa Diaz MD, Pathologist NPI- [id number] . 01 Gross description: . The specimen is received in formalin labeled with the patient's name, , and gallbladder, and consists of an intact gallbladder measuring 6.5 x 3.3 x 3.3 cm. The external surface is unremarkable. The cystic duct is received closed with a clamp, is inked blue, and no pericystic lymph node is identified. The lumen contains multiple small yellow, bossellated calculi measuring up to 0.2 cm in greatest dimension not grossly obstructing the cystic duct, admixed with bile ranging in texture from viscous to semisolid. The mucosa is green and velvety with no discoloration, polyps, or lesions identified. The shien average 0.1 cm thick. Program Manager Transportation sections to include the cystic duct margin and full-thickness sections are submitted in cassette A1. ([id number]) /FRR 04/20/2023 0321 Local . 01 Pathologist provided ICD-10: K80.50 . 01 CPT . 750885 Specimen Comment: A courtesy copy of this report has been sent to [phone] Performed at: 01 [facility] [address] [place] [address] [address] [facility], [place], [place] [id number] MD Wade Villegas MD Phone: [phone]
[2023-04-15] MEDS: LACTATED RINGERS 1,000 ML 42 ML IV ×2 (14:09→15:40)
--- NOTE | 2023-04-15 14:46 | PM.PREOP ---
Pre-operative Note Interval Note History & Physical reviewed/Exam performed by Physician: Yes Changes to H&P: No
[2023-04-15] MEDS: CEFAZOLIN 2 GM/100 ML PREMIX 100 ML IV (15:13)
[2023-04-15] MEDS: BUPIVACAINE 0.25% (PF) VIAL 30 ML INJ (15:44)
--- NOTE | 2023-04-15 15:46 | SUR.OPER ---
Supine on padded OR bed, head on pillow, safety belt at thigh, left arm padded and tucked at side. Right arm secured on padded arm board <90 degrees abduction. Legs uncrossed. Padded footboard in place. Tape over blanket to secure lower legs.
[2023-04-15] MEDS: HYDROMORPHONE 2 MG INJ IV (17:07)
--- NOTE | 2023-04-15 17:14 | SUR.PHASEI ---
Florencia Cameron from here at 1701. heart tones 145-151
--- NOTE | 2023-04-15 17:18 | PM.OP.1 ---
Operative Date/Time/Diagnoses Date of procedure: 04/15/23 Time of procedure: 17:18 Pre-op diagnosis: biliary colic Post-op diagnosis: same Procedure & Clinicians Procedure: laparoscopic cholecystectomy Same procedure as scheduled: Yes Indications: 22 y.o woman 20 weeks gestation with recurrent biliary colic and multiple emergency department visits for such Surgeon: Surya Cottrell Anesthesia Type: General Operative Notes Findings: 100-200 ml of hemorrhage from a posterior branch of cystic artery Specimen(s): other (gallbladder) Estimated Blood Loss (mL): 200 Procedure in detail: The patient was placed supine on the table and bilateral lower extremity compression devices were applied. Anesthesia was induced they were intubated with an endotracheal tube and received 2g of Ancef. A time-out was performed. They were prepped and draped in sterile fashion. The fundus was palpable and proximally level of the umbilicus. Supraumbilical incision was made. The fascia was elevated incised and the abdomen was entered atraumatically. A blunt tip 12mm balloon trocar was then inserted, pneumoperitoneum was established and inspection of the abdomen demonstrated no evidence of injury. They were placed head up and right side up and then a 11 mm port was placed high in the epigastrium and two 5mm in the right upper quadrant. The gallbladder was grasped by the fundus and retracted over the liver and retracted laterally by the infundibulum. Using electrocautery the lateral plane between the gallbladder and the liver was opened towards the fundus. The gallbladder was then retracted laterally and the medial plane was developed in the same manner. With the gallbladder mobilized the bottom of the cystic plate was visualized. The hepatocystic triangle was meticulosly skeletonized with blunt dissection of fat and fibrous tissue from both the front and the back. Only two structures were then clearly seen entering the gallbladder. With the critical view of safety fully established the cystic duct was clipped twice proximally and once distally using the 10 mm Weck hemoclip applied under direct visualization and then sharply divided. In the process of dividing the cystic duct there was approximately 100-200 ml of hemorrhage from a posterior branch of the cystic artery. This was controlled with hemoclips. The cystic artery was then divided after the application of Weck hemoclips. The gallbladder was removed from the liver bed using electro cautery. The liver bed was then inspected for hemostasis and this was achieved. The abdomen was irrigated with sterile saline and inspection was made that showed the clips in good position. The specimen was removed using Endo-Catch. The abdomen was desufflated. The umbilical fascia was closed with 0 Vicryl in a exvmww-[id number] fashion under direct visualization. Skin incisions were irrigated and closed with 4-0 Monocryl. 30 ml of 0.25% bupivacaine was infiltrated into the subcutaneous tissue of the incisions. The wounds were sealed with Dermabond. Patient emerged from anesthesia was extubated and transferred to recovery in stable condition. The sponge and instrument count at the end of the operation was correct. Post-operative Condition: stable Disposition: same day surgery
[2023-04-15] MEDS: ONDANSETRON 4 MG/2 ML INJ IV (17:39)
[2023-04-15] MEDS: OXYCODONE IR 5 MG TABLET PO (17:40)
[2023-04-15] MEDS: ACETAMINOPHEN 325 MG TABLET PO (17:40)
== END 2023-04-15 18:49 | disposition home or self-care (01) ==
PROVIDERS: PCP Family Medicine; Referring Provider Surgery; Visit Provider Surgery
PROC: 0FT44ZZ Resection of Gallbladder, Percutaneous Endoscopic Approach (ICD-10-PCS; CPT 47562; principal; 2023-04-15 14:45)
DX: K80.10 Calculus of gallbladder with chronic cholecystitis without obstruction (principal); O26.612 Liver and biliary tract disorders in pregnancy, second trimester; K83.9 Disease of biliary tract, unspecified; Z3A.19 19 weeks gestation of pregnancy
CPT/HCPCS: 47562; J0690; J1170; J1885; J2405; J2704; J2765; J3010; J3490

== ENCOUNTER → 2023-04-19 06:41 | Outpatient (CLI) | payer OTHER, SELFPAY ==
[2023-03-26 18:10] VITALS: BMI 22.3
--- NOTE | 2023-04-19 06:41 | DI.US.S_ITS ---
PROCEDURE: US OB >= 14 WEEKS FETUS INDICATIONS: 20 Week Anatomy Scan OUTSIDE/PRIOR DATING DATA: Last menstrual period (LMP): Unknown. First dating scan (date and location): 01/07/2023. Estimated date of delivery (AI) from first dating scan: 08/28/2023. TECHNIQUE: Real-time scanning was performed of the fetus, with image documentation and biometric measurements. Endovaginal scanning: Not performed COMPARISON: [facility], , OB <= 14 WEEKS FETUS, 01/07/2023, 7:08. FINDINGS: General: A single living intrauterine gestation is present. Presentation: Breech. Placenta: Placental position is anterior , without previa. Amniotic fluid index: 18.7 cm, normal range is 5-24 cm. Single deepest vertical pocket is 5.7 cm. heart rate: 158 beats per minute. Maternal cervical canal: 4.1 cm long. Normal lower limit is 2.5 cm. biometrics: Biparietal diameter: 5.1 centimeters 21 weeks 4 days Head circumference: 19.2 centimeters 21 weeks 3 days Abdominal circumference: 18.2 centimeters 23 weeks 0 days Femur length: 3.6 centimeters 21 weeks 4 days estimated gestational age: 21 weeks 2 days Composite gestational age from present scan: 21 weeks 6 days Estimated weight and percentile: 487 grams, 89th percentile Anatomic survey: Neuro: Ventricles are non-dilated at less than 10 mm. Cisterna magna is normal at 3-11 mm. Cerebellum is normal in size and morphology. Nuchal skin fold: Normal at less than 6 mm between 14-21 weeks gestational age. Face: Nose and lips, facial profile are normal. Spine: No evidence for spina bifida. Heart: 4-chambered heart is present, with normal ventricular outflow tracts. Diaphragm: Diaphragm is intact. Stomach: Left-sided stomach is present. Kidneys: No hydronephrosis. Normal is less than 5 mm in 2nd trimester, less than 7 mm in 3rd trimester. Cord: 3-vessel cord has orthotopic insertion. Bladder: Normal in size. Extremities: All 4 extremities identified. IMPRESSION: 1. Single living intrauterine . 2. Normal 2nd trimester anatomy survey. No anatomic abnormalities detected at this time. 3. Estimated weight at the 89th percentile. We strive to produce accurate, complete, and clear reports of imaging services. To assist us in improving patient care, this report was composed using standard report templates and voice recognition software. Therefore, it may contain abnormal punctuation, insertions and/or omissions. Occasional wrong-word or sound-alike substitutions may occur. Though we review the report and make efforts to correct it, we do recommend that the report be read carefully in proper context to recognize any text inaccuracies. Dictated by: Oseas Luna M.D. on 04/19/2023 at 9:00 Approved by: Oseas Luna M.D. on 04/19/2023 at 9:11
== END ==
PROVIDERS: PCP Family Medicine; Referring Provider Obstetrics & Gynecology; Visit Provider Obstetrics & Gynecology
DX: Z34.82 Encounter for supervision of other normal pregnancy, second trimester (principal); Z3A.21 21 weeks gestation of pregnancy
CPT/HCPCS: 76811

== ENCOUNTER → 2023-06-02 13:35 | Outpatient (CLI) | payer OTHER, SELFPAY ==
[2023-03-26 18:10] VITALS: BMI 22.3
[2023-06-02 14:53] LABS: Hemoglobin 9.3 g/dL (12.0-16.0)
[2023-06-02 15:22] LABS: GTT (PREG) 1 Hour PP 50gm Dose 114 mg/dL (76-139)
== END ==
PROVIDERS: PCP Family Medicine; Referring Provider Obstetrics & Gynecology; Visit Provider Obstetrics & Gynecology
DX: Z34.82 Encounter for supervision of other normal pregnancy, second trimester (principal); Z3A.26 26 weeks gestation of pregnancy
CPT/HCPCS: 36415; 82950; 85014; 85018

== ENCOUNTER 2023-07-13 19:01 | Observation (INO) | payer OTHER, SELFPAY ==
[2023-03-26 18:10] VITALS: BMI 22.3
[2023-07-13 19:31] LABS: Appearance Urine UA SL CLOUDY; Bilirubin Urine UA NEGATIVE (NEGATIVE); Color Urine UA YELLOW; Glucose Urine UA NEGATIVE (Negative); Ketones Urine UA 1+ (NEGATIVE); Leukocyte Esterase Urine UA 1+ (NEGATIVE); Nitrite Urine UA NEGATIVE (Negative); Occult Blood Urine UA NEGATIVE (Negative); Protein Urine UA NEGATIVE (Negative); Urobilinogen Urine UA 0.2 E.U./dL (0.2)
[2023-07-13 19:34] LABS: Bacteria Urine None Seen; Culture Indicated Urine Specimen Cultured; RBC Urine None Seen (0-5/HPF); Squamous Epithelial Cell Urine 1-5 /HPF (0-5/HPF); WBC Urine 1-5/HPF (0-5/HPF)
[2023-07-13] MEDS: LACTATED RINGERS 1,000 ML 1000 ML IV (20:25)
[2023-07-13 20:57] LABS: Add Manual Diff / Slide Review NO; Basophils Absolute Auto 0 /uL (0-100); Basophils Percent Auto 0.4 % (0-2); Eosinophils Absolute Auto 100 /uL (0-450); Eosinophils Percent Auto 1.1 % (2-4); Hematocrit 28.4 % (36-46); Hemoglobin 9.9 g/dL (12.0-16.0); Lymphocytes Absolute Auto 200 /uL (1100-4500); Lymphocytes Percent Auto 3.1 % (25-40); Mean Corpuscular HGB Conc 34.7 % (30-36); Mean Corpuscular Hemoglobin 32.7 PG (26-34); Mean Corpuscular Volume 94.1 fL (80-100); Monocytes Absolute Auto 500 /uL (0-900); Monocytes Percent Auto 5.9 % (3-14); Neutrophils Absolute Auto 7100 /uL (1500-7000); Neutrophils Percent Auto 89.5 % (50-75); Platelet Count 155 X10^3/uL (150-400); Red Blood Cell Count 3.02 X10^6/uL (4.0-5.2); Red Cell Distribution Width 19.4 % (11.6-14.8); White Blood Cell Count 7.9 X10^3/uL (4.5-11.0)
[2023-07-13 21:54] VITALS: TEMP 37.3
[2023-07-13] MEDS: ACETAMINOPHEN 325 MG TABLET 975 MG PO (21:54)
--- NOTE | 2023-07-13 22:20 | P.HPOB_ITS ---
OB HPI Date/Time Date of admission: 07/13/23 Date Patient Seen: 07/13/23 Time Patient Seen: 22:20 History of Present Condition Chief complaint: pelvis pain/observation : 2 Para: 1 Estimated Date of Delivery: 08/28/23 Estimated Gestational Age (weeks): 33 Narrative: Jill Anderson is a 23 year old female arrived on Labor and delivery complaining pain and not feeling well History of Present care: good care, initiated at week # (6) and number of visits Dating criteria: LMP confirmed by 1st trimester US Ultrasounds: normal mid trimester US Obstetrical complications: none Medical complications: gastrointestinal (Cholecystectomy at 18 weeks) Preadmission Labs Blood type: A (+) positive -: Antibody screen: negative, GBS status: unknown, HBsAG: negative, HIV: negative and RPR/VDLR: negative -: Chlamydia screen: not detected and Gonorrhea screen: not detected -: Rubella: not immune and Varicella: immune HCAB: negative Quad screen: Normal 1 hr GTT: 114 Evaluation Evaluation Baseline heart rate: 170 Variability: Moderate (11-25) monitor accelerations: Present Monitor Decelerations: Absent Contraction Frequency (minutes): 8 Uterine Contraction Intensity: Mild Category of Tracing: Reactive Status: Category ll Dilation (cm): 0 Effacement (%): 0 station: -4 PFSH Medical History (Updated 07/06/23 @ 15:37 by Mookie Silvestre MD) Asthma (~2002) Astigmatism (~2010) Cholelithiasis Encounter for IUD insertion (~07/22/21) H/O molluscum contagiosum (~10/30/20) Migraine without aura Vaginal delivery (~05/26/21) Surgical History (Updated 04/20/23 @ 15:26 by Mookie Silvestre MD) History of laparoscopic cholecystectomy [place] teeth extracted (~2018) Family History Mother No problems noted. Father No problems noted. Grandmother No problems noted. Grandfather No problems noted. Grandmother Diabetes mellitus Grandfather Family estrangement Social History marital status: number of children: 1 household members: spouse and children lives independently: Yes caregiver/support person: Yes housing: apartment pets and animals: Yes (2 dogs) education level: high school occupational status: employed (active duty cook) current occupational exposures/hazards: No jose/religious: Sikhism special jose needs: No travel history: recent (Domestic and [place] only) seatbelt use: always water heater temp set < 120 deg: Yes working smoke detector in home: Yes fire extinguisher in home: Yes carbon monox detector in home: Yes firearms in home: Yes firearms unloaded and locked: Yes do you feel safe at home: Yes Smoking Status: Never smoker second hand exposure: No alcohol intake: former substance use type: does not use during the past year weight has: remained stable well-balanced diet: about half the time daily servings fruits/ve-4 caffeine: Yes (1 soda every couple days. Aware of caffeine limits.) Type(s) of exercise: walking and other frequency: 3-4 times per week Meds Home Medications and Allergies Home Medications Medication Instructions Recorded Confirmed Type ferrous sulfate 250 mg (50 mg 250 mg PO DAILY 01/13/23 06/15/23 History iron) tablet,extended release prenat.vits,derian,igg-gwsd-xdlmv 1 tab PO DAILY 01/13/23 06/15/23 History acetaminophen 325 mg capsule 650 mg PO QID PRN pain #60 caps 04/15/23 06/15/23 Rx (Tylenol) Allergies Allergy/AdvReac Type Severity Reaction Status Date / Time No Known Drug Allergies Allergy Verified 06/15/23 13:35 Review of Systems Review of Systems Narrative: Patient states she began feeling ill this evening with achiness, headache, lower abdominal pressure, increased frequency of urination. Patient denies vaginal bleeding. No leakage of fluid. Patient denies any constipation or diarrhea. No cough or sore throat. OB Exam Vital signs Blood Pressure: 112/57 Pulse Rate: 123 Temperature: 99.9 F Narrative Exam Narrative: Patient is wearing a mask. No thyromegaly. Lungs are clear to auscultation and percussion. Heart is regular rate and rhythm although tachycardic. No murmurs appreciated. Abdomen is soft with some mild uterine tenderness but no rebound. Extremities without edema and nontender. Ultrasound was performed. No obvious signs of abruption with anterior grade 1 placenta. RAYMUNDO is 18. Good movement, tone, breathing. Baby is in breech presentation. Objective Labs 07/13/23 19:38 Labs: Laboratory Results - last 24 hr 07/13/23 07/13/23 19:30 19:38 WBC 7.9 RBC 3.02 L Hgb 9.9 L Hct 28.4 L MCV 94.1 MCH 32.7 MCHC 34.7 RDW 19.4 H Plt Count 155 Neut % (Auto) 89.5 H Lymph % (Auto) 3.1 L [place] % (Auto) 5.9 Eos % (Auto) 1.1 L Baso % (Auto) 0.4 Neut # (Auto) 7100 H Lymph # (Auto) 200 L [place] # (Auto) 500 Eos # (Auto) 100 Baso # (Auto) 0 Urine Color Yellow Urine Appearance Sl cloudy Urine pH 6.0 Ur Specific [place] 1.020 Urine Protein Negative Urine Glucose (UA) Negative Urine Ketones 1+ H Urine Occult Blood Negative Urine Nitrate Negative Urine Bilirubin Negative Urine Urobilinogen 0.2 Ur Leukocyte Esterase 1+ H Urine RBC None seen Urine WBC 1-5/hpf Ur Squamous Epith Cells 1-5 /hpf Urine Bacteria None seen Ur Culture Indicated? Specimen cultured Assessment and Plan Assessment and Plan Assessment and Plan narrative: Maternal and tachycardia. On initial presentation patient was afebrile however temperature increased despite 1 L of fluid. Unclear etiology of the rising temperature and the tachycardia. Discussed the case with Maternal- Medicine on-call. They recommended testing for COVID. Continue IV fluids and Tylenol. [facility] is full so if transfers eventually needed she will need to go to [facility].
[2023-07-13 22:26] VITALS: BP 112/57; PULSE 123; TEMP 37.7
[2023-07-13 22:59] LABS: COVID19 -Nasal RAPID POSITIVE (Negative)
[2023-07-14 00:11] LABS: Strep Grp B PCR NEG for Grp B Strep
[2023-07-14] MEDS: ACETAMINOPHEN 325 MG TABLET PO (03:32)
[2023-07-14 05:46] LABS: Add Manual Diff / Slide Review NO; Basophils Absolute Auto 0 /uL (0-100); Basophils Percent Auto 0.5 % (0-2); Eosinophils Absolute Auto 0 /uL (0-450); Hematocrit 25.2 % (36-46); Hemoglobin 8.6 g/dL (12.0-16.0); Lymphocytes Absolute Auto 300 /uL (1100-4500); Lymphocytes Percent Auto 5.5 % (25-40); Mean Corpuscular HGB Conc 34.3 % (30-36); Mean Corpuscular Hemoglobin 32.2 PG (26-34); Mean Corpuscular Volume 93.8 fL (80-100); Monocytes Absolute Auto 400 /uL (0-900); Monocytes Percent Auto 7.4 % (3-14); Neutrophils Absolute Auto 4100 /uL (1500-7000); Neutrophils Percent Auto 85.6 % (50-75); Platelet Count 135 X10^3/uL (150-400); Red Blood Cell Count 2.69 X10^6/uL (4.0-5.2); Red Cell Distribution Width 18.9 % (11.6-14.8); White Blood Cell Count 4.8 X10^3/uL (4.5-11.0)
[2023-07-14 06:07] LABS: Carbon Dioxide 22 mmol/L (22-32); Chloride 107 mmol/L (98-107); HEMOLYSIS < 15 (0-50); Potassium 3.3 mmol/L (3.4-5.1); Sodium 134 mmol/L (137-145)
[2023-07-14 06:24] VITALS: BP 80/41
--- NOTE | 2023-07-14 06:55 | P.DS_ITS ---
History of Present Illness History of Present Illness Date Patient Seen: 07/14/23 Time Patient Seen: 06:56 Chief complaint: pelvis pain/observation Narrative: Patient arrived on Labor and delivery at 33 weeks 3 days complaining of discomfort. She had tachycardia as well as tachycardia. She was diagnosed with COVID infection. She was treated with IV fluids and Tylenol. Discharge Providers Provider Date of admission: 07/13/23 19:01 Discharge Date: 07/14/23 Primary care physician: Isael Howe DO Discharge provider: Diane Luis MD Summary Hospital Course Discharge Diagnosis: COVID in Hospital Course: Patient is at 33 weeks 3 days who arrived on Labor and delivery with maternal and tachycardia. Patient was evaluated and found to have COVID causing her symptoms. Patient received IV fluids and Tylenol. Patient continues to have tachycardia however the fetus heart rate has decreased. Patient's O2 sats remain greater than 97 %. Status at Discharge Cognitive/behavioral status at discharge: oriented Functional status at discharge: independent ambulation Overall status at discharge: patient is not back to baseline Time Spent with Patient Time spent: Less than 30 minutes Exam Vital Signs (past 8 hours): - Temperature 36.2? 07/14/23 06:24 Blood Pressure 80/41 L Pulse 121. O2 sat 98% Narrative Exam Narrative: Patient wearing N95 mask. Breathing is normal. Abdomen continues to be slightly tender however patient does feel tenderness throughout her body. No significant contractions. No vaginal bleeding or leakage of fluid. Extremities without edema and nontender. heart tones baseline 155 with normal [id number] variability with accelerations and no decelerations. No significant contractions seen on the monitor. Objective Labs 07/14/23 05:22 07/14/23 05:22 Labs: Laboratory Results - last 24 hr 07/13/23 07/13/23 07/13/23 19:30 19:38 22:40 WBC 7.9 RBC 3.02 L Hgb 9.9 L Hct 28.4 L MCV 94.1 MCH 32.7 MCHC 34.7 RDW 19.4 H Plt Count 155 Neut % (Auto) 89.5 H Lymph % (Auto) 3.1 L [place] % (Auto) 5.9 Eos % (Auto) 1.1 L Baso % (Auto) 0.4 Neut # (Auto) 7100 H Lymph # (Auto) 200 L [place] # (Auto) 500 Eos # (Auto) 100 Baso # (Auto) 0 Sodium Potassium Chloride Carbon Dioxide Urine Color Yellow Urine Appearance Sl cloudy Urine pH 6.0 Ur Specific [place] 1.020 Urine Protein Negative Urine Glucose (UA) Negative Urine Ketones 1+ H Urine Occult Blood Negative Urine Nitrate Negative Urine Bilirubin Negative Urine Urobilinogen 0.2 Ur Leukocyte Esterase 1+ H Urine RBC None seen Urine WBC 1-5/hpf Ur Squamous Epith Cells 1-5 /hpf Urine Bacteria None seen Ur Culture Indicated? Specimen cultured SARS-CoV-2 (PCR) Group B Strep (PCR) Neg for grp b strep 07/13/23 07/14/23 07/14/23 22:47 05:22 05:22 WBC 4.8 RBC 2.69 L Hgb 8.6 L Hct 25.2 L MCV 93.8 MCH 32.2 MCHC 34.3 RDW 18.9 H Plt Count 135 L Neut % (Auto) 85.6 H Lymph % (Auto) 5.5 L [place] % (Auto) 7.4 Eos % (Auto) 1.0 L Baso % (Auto) 0.5 Neut # (Auto) 4100 Lymph # (Auto) 300 L [place] # (Auto) 400 Eos # (Auto) 0 Baso # (Auto) 0 Sodium 134 L Potassium 3.3 L Chloride 107 Carbon Dioxide 22 Urine Color Urine Appearance Urine pH Ur Specific [place] Urine Protein Urine Glucose (UA) Urine Ketones Urine Occult Blood Urine Nitrate Urine Bilirubin Urine Urobilinogen Ur Leukocyte Esterase Urine RBC Urine WBC Ur Squamous Epith Cells Urine Bacteria Ur Culture Indicated? SARS-CoV-2 (PCR) Positive H Group B Strep (PCR) [facility] Medical History (Updated 07/06/23 @ 15:37 by Mookie Silvestre MD) Asthma (~2002) Astigmatism (~2010) Cholelithiasis Encounter for IUD insertion (~07/22/21) H/O molluscum contagiosum (~10/30/20) Migraine without aura Vaginal delivery (~05/26/21) Surgical History (Updated 04/20/23 @ 15:26 by Mookie Silvestre MD) History of laparoscopic cholecystectomy [place] teeth extracted (~2018) Family History Mother No problems noted. Father No problems noted. Grandmother No problems noted. Grandfather No problems noted. Grandmother Diabetes mellitus Grandfather Family estrangement Social History marital status: number of children: 1 household members: spouse and children lives independently: Yes caregiver/support person: Yes housing: apartment pets and animals: Yes (2 dogs) education level: high school occupational status: employed (active duty cook) current occupational exposures/hazards: No jose/taoist: Protestant special jose needs: No travel history: recent (Domestic and [place] only) seatbelt use: always water heater temp set < 120 deg: Yes working smoke detector in home: Yes fire extinguisher in home: Yes carbon monox detector in home: Yes firearms in home: Yes firearms unloaded and locked: Yes do you feel safe at home: Yes Smoking Status: Never smoker second hand exposure: No alcohol intake: former substance use type: does not use during the past year weight has: remained stable well-balanced diet: about half the time daily servings fruits/ve-4 caffeine: Yes (1 soda every couple days. Aware of caffeine limits.) Type(s) of exercise: walking and other frequency: 3-4 times per week Discharge Assessment & Plan Assessment and Plan Plan of Treatment: 33 week gestation with COVID infection. Patient will be discharged home with precautions to return for labor symptoms, leakage of fluid or vaginal bleeding, increasing shortness of breath. Discharge Plan Discharge Plan Patient Disposition: Home Discharge orders & Medications Prescriptions: New Paxlovid 300 mg (150 mg x 2)-100 mg tablets,dose pack See Rx Instructions .ROUTE .COMPLEX Qty: 30 0RF Rx Instructions: take TWO 150 mg tablets of nirmatrelvir with ONE 100 mg tablet of ritonavir twice daily for 5 days Continued prenat.vits,derian,bhg-ywey-myzvg Tablet 1 tab PO DAILY ferrous sulfate 250 mg (50 mg iron) tablet extended release 250 mg PO DAILY acetaminophen [Tylenol] 325 mg capsule 650 mg PO QID PRN (Reason: pain) Qty: 60 0RF Follow up/Referrals: Isael Howe DO [Primary Care Provider] - Diane Luis MD [Physician] - (Patient will be contacted to see when her symptoms have resolved to schedule follow-up appointment) Diet/Activity/Treatments Diet: Regular Activity: Remain isolated from other individuals for 1 week after symptoms resolved Discharge Data Primary Care Provider: Isael Howe Attending Provider: Mookie Silvestre Date/Time: 07/13/23 19:01
== END 2023-07-14 08:00 | disposition home or self-care (01) ==
PROVIDERS: Specialist; Admitting Provider Obstetrics & Gynecology; PCP Family Medicine; Referring Provider Obstetrics & Gynecology; Visit Provider Obstetrics & Gynecology
DX: O99.891 Other specified diseases and conditions complicating pregnancy (principal); R00.0 Tachycardia, unspecified; O36.8330 Maternal care for abnormalities of the fetal heart rate or rhythm, third trimester, not applicable or unspecified; O98.513 Other viral diseases complicating pregnancy, third trimester; U07.1 COVID-19; Z3A.33 33 weeks gestation of pregnancy
CPT/HCPCS: 36415; 59025; 59050; 76815; 80051; 81001; 85025; 87081; 87086; 87635; 87653; 96360; C9803; G0378; G0379

== ENCOUNTER → 2023-08-08 11:09 | Outpatient (CLI) | payer OTHER, SELFPAY ==
[2023-03-26 18:10] VITALS: BMI 22.3
[2023-08-09 12:51] LABS: Strep Grp B PCR NEG for Grp B Strep
[2023-08-09 13:36] LABS: Candida species Negative (Negative); Gardnerella vaginalis Negative (Negative); Trichomoas vaginalis Negative (Negative)
== END ==
PROVIDERS: PCP Family Medicine; Visit Provider Physician Assistant Medical
DX: O26.899 Other specified pregnancy related conditions, unspecified trimester (principal); N89.8 Other specified noninflammatory disorders of vagina; Z3A.37 37 weeks gestation of pregnancy; R82.90 Unspecified abnormal findings in urine
CPT/HCPCS: 87086; 87480; 87510; 87653; 87660

== ENCOUNTER 2023-08-27 22:38 | Outpatient (CLI) | payer OTHER, SELFPAY ==
[2023-03-26 18:10] VITALS: BMI 22.3
--- NOTE | 2023-08-28 07:51 | PM.OBTRLD ---
Visit Information Visit Information Date of evaluation: 08/27/23 Primary OB Provider: Mookie Silvestre On-call OB Provider: Diane Luis Reason for Evaluation: Yes rule out labor Comments/Additional reasons for admission: Patient EDC comes in for possible labor. Vital Signs Vital Signs: BP 114/64 , P 102, T 36.6 [facility] Medical History (Updated 08/28/23 @ 07:56 by Diane Luis MD) Cholelithiasis Migraine without aura Encounter for IUD insertion (~07/22/21) Vaginal delivery (~05/26/21) Astigmatism (~2010) H/O molluscum contagiosum (~10/30/20) Asthma (~2002) Surgical History (Updated 04/20/23 @ 15:26 by Mookie Silvestre MD) History of laparoscopic cholecystectomy [place] teeth extracted (~2018) Family History Mother No problems noted. Father No problems noted. Grandmother No problems noted. Grandfather No problems noted. Grandmother Diabetes mellitus Grandfather Family estrangement Social History marital status: number of children: 1 household members: spouse and children lives independently: Yes caregiver/support person: Yes housing: apartment pets and animals: Yes (2 dogs) education level: high school occupational status: employed (active duty cook) current occupational exposures/hazards: No jose/mu-ism: Alevism special jose needs: No travel history: recent (Domestic and [place] only) seatbelt use: always water heater temp set < 120 deg: Yes working smoke detector in home: Yes fire extinguisher in home: Yes carbon monox detector in home: Yes firearms in home: Yes firearms unloaded and locked: Yes do you feel safe at home: Yes Smoking Status: Never smoker second hand exposure: No alcohol intake: former substance use type: does not use during the past year weight has: remained stable well-balanced diet: about half the time daily servings fruits/ve-4 caffeine: Yes (1 soda every couple days. Aware of caffeine limits.) Type(s) of exercise: walking and other frequency: 3-4 times per week Review of Systems Review of Systems Narrative: No leakage of fluid. No bleeding. No headache. Good movement. c/o contractions. Evaluation Evaluation Baseline heart rate: 130 Variability: Moderate (11-25) monitor accelerations: Present Monitor Decelerations: Absent Contraction Frequency (minutes): 5 Uterine Contraction Intensity: Mild Category of Tracing: Reactive Status: Category l Cervical dilation (cm): 1 Cervical effacement (%): 75 station: -3 Diagnosis, Plan/Disposition Final Diagnosis (1) 39 weeks gestation of : Status: Acute (2) False labor after 37 completed weeks of gestation: Status: Acute Plan/Disposition Plan: patient reassured no change in cervix. Labor, preeclampsia, rupture of membrane precautions reviewed. OB Disposition: home
== END 2023-08-27 23:34 | disposition home or self-care (01) ==
LOC: OB 08-29 10:02
PROVIDERS: PCP Family Medicine; Referring Provider Specialist; Visit Provider Specialist
DX: O47.1 False labor at or after 37 completed weeks of gestation (principal); Z3A.39 39 weeks gestation of pregnancy
CPT/HCPCS: 59025; G0378; G0379

== ENCOUNTER 2023-08-30 15:31 | Outpatient (CLI) | payer OTHER, SELFPAY ==
[2023-03-26 18:10] VITALS: BMI 22.3
== END 2023-08-30 16:11 | disposition home or self-care (01) ==
LOC: OB 09-01 16:57
PROVIDERS: PCP Family Medicine; Referring Provider Obstetrics & Gynecology; Visit Provider Obstetrics & Gynecology
DX: O48.0 Post-term pregnancy (principal); O47.1 False labor at or after 37 completed weeks of gestation; Z3A.40 40 weeks gestation of pregnancy
CPT/HCPCS: 59025; G0378; G0379

== ENCOUNTER 2023-09-04 14:06 | Inpatient (IN) | payer OTHER, SELFPAY ==
[2023-03-26 18:10] VITALS: BMI 22.3
[2023-09-04 14:37] LABS: Appearance Urine UA SL CLOUDY; Bilirubin Urine UA 2+ (NEGATIVE); Glucose Urine UA NEGATIVE (Negative); Ketones Urine UA TRACE (NEGATIVE); Leukocyte Esterase Urine UA NEGATIVE (NEGATIVE); Nitrite Urine UA POSITIVE (Negative); Occult Blood Urine UA NEGATIVE (Negative); Protein Urine UA 2+ (Negative); Specific Gravity Urine UA >=1.030 (1.000-1.035)
[2023-09-04 14:49] LABS: Color Urine UA Amber; pH Urine UA 5.5 (4.5-8.0)
[2023-09-04 14:50] LABS: Bacteria Urine Few (2-10); Culture Indicated Urine Specimen Cultured; Ictotest Urine Positive (Negative); Mucus Urine 3+ (Negative); RBC Urine 0-1/HPF (0-5/HPF); Squamous Epithelial Cell Urine 1-5 /HPF (0-5/HPF); WBC Urine 1-5/HPF (0-5/HPF)
--- NOTE | 2023-09-04 19:53 | P.HPOB_ITS ---
OB HPI Date/Time Date of admission: 09/04/23 Date Patient Seen: 09/04/23 Time Patient Seen: 19:53 History of Present Condition Chief complaint: : 2 Para: 1 Estimated Date of Delivery: 08/28/23 Estimated Gestational Age (weeks): 41 Narrative: Jill Anderson is a 23 year old female Comments: Patient is a 23-year-old female at 41 weeks and 0 days. This was determined by LMP as well as early ultrasound. Her OB course has been significant in that she has had a laparoscopic cholecystectomy done for cholecystitis. She was also in the hospital for a pyelonephritis. During this she also received iron for anemia. Her OB care started at 13 weeks EGA. She is had regular visits. Her previous was delivered at 41 weeks. She is scheduled for an induction on . Yesterday she was doing some stretching exercises following this she states became somewhat she developed contractions. These have become progressively worse with time. At about noon she called and was told to come in for evaluation. Initially her cervix was 260% and -2 currently is 4-5 cm 80% and-2 vertex transabdominal ultrasound shows the baby in a vertex presentation. She denies rupture of membranes. Her experience with her epidural with her last was 1 that she does not want to repeat therefore she is requesting nitrous oxide. History of Present care: good care Dating criteria: LMP confirmed by 1st trimester US Ultrasounds: normal 1st trimester US and normal mid trimester US Preadmission Labs -: Antibody screen: negative, GBS status: negative, HBsAG: negative, HIV: negative, HSV 1: negative, HSV 2: negative and RPR/VDLR: negative -: Chlamydia screen: not detected and Gonorrhea screen: not detected -: Rubella: not immune and Varicella: immune Quad screen: Normal 1 hr GTT: 115 Prior (ies) History: Patient's previous was delivered at 41 weeks she states she had a 10-5 minute 2nd stage. [facility] Medical History Cholelithiasis Migraine without aura Encounter for IUD insertion (~07/22/21) Vaginal delivery (~05/26/21) Astigmatism (~2010) H/O molluscum contagiosum (~12/10/20) Asthma (~2002) Surgical History History of laparoscopic cholecystectomy [place] teeth extracted (~2018) Family History Mother No problems noted. Father No problems noted. Grandmother No problems noted. Grandfather No problems noted. Grandmother Diabetes mellitus Grandfather Family estrangement Social History marital status: number of children: 1 household members: spouse and children lives independently: Yes caregiver/support person: Yes housing: apartment pets and animals: Yes (2 dogs) education level: high school occupational status: employed (active duty cook) current occupational exposures/hazards: No jose/roman catholic: Gnosticist special jose needs: No travel history: recent (Domestic and [place] only) seatbelt use: always water heater temp set < 120 deg: Yes working smoke detector in home: Yes fire extinguisher in home: Yes carbon monox detector in home: Yes firearms in home: Yes firearms unloaded and locked: Yes do you feel safe at home: Yes Smoking Status: Never smoker second hand exposure: No alcohol intake: former substance use type: does not use during the past year weight has: remained stable well-balanced diet: about half the time daily servings fruits/ve-4 caffeine: Yes (1 soda every couple days. Aware of caffeine limits.) Type(s) of exercise: walking and other frequency: 3-4 times per week Meds Home Medications and Allergies Home Medications Medication Instructions Recorded Confirmed Type ferrous sulfate 250 mg (50 mg 250 mg PO DAILY 01/13/23 08/30/23 History iron) tablet,extended release prenat.vits,derian,hte-yiyf-dvkgr 1 tab PO DAILY 01/13/23 08/30/23 History acetaminophen 325 mg capsule 650 mg (2 x 325 mg) PO QID PRN 04/15/23 08/30/23 Rx (Tylenol) pain #60 caps nirmatrelvir 300 mg (150 mg See Rx Instructions PO .COMPLEX 07/14/23 08/30/23 Rx x2)-ritonavir 100 mg tablet,dose #30 ea pack (Paxlovid) Allergies Allergy/AdvReac Type Severity Reaction Status Date / Time No Known Drug Allergies Allergy Verified 08/30/23 15:00 OB Exam Vital signs Blood Pressure: 116/62 Pulse Rate: 81 Respiratory Rate: 15 Temperature: 36.8 F HENMT Head: normal to inspection and atraumatic Mouth: oral mucosae normal and lip normal Eyes General: appearance normal, both eyes and all related structures (Sclera was nonicteric) Resp Effort & Inspection: normal respiratory effort Auscultation: clear to auscultation bilaterally Cardio Rate: regular rate Rhythm: regular rhythm Heart Sounds: S1 normal and S2 normal Extremities DTR's: Rt Patellar: 3+ and Lt Patellar: 3+ GI Inspection: normal to inspection (Scars from previous laparoscopic cholecystectomy) Auscultation: normal bowel sounds Presentation: vertex (Ultrasound shows baby to be vertex presentation.) Objective Labs 09/04/23 19:45 09/04/23 19:45 Labs: Laboratory Results - last 24 hr 09/04/23 14:25 Urine Color [place] Urine Appearance Sl cloudy Urine pH 5.5 Ur Specific [place] >=1.030 H Urine Protein 2+ H Urine Glucose (UA) Negative Urine Ketones Trace H Urine Occult Blood Negative Urine Nitrate Positive H Urine Bilirubin 2+ H Ur Bilirubin Confirm Positive H Urine Urobilinogen 1.0 Ur Leukocyte Esterase Negative Urine RBC 0-1/hpf Urine WBC 1-5/hpf Ur Squamous Epith Cells 1-5 /hpf Urine Bacteria Few (2-10) H Urine Mucus 3+ H D Ur Culture Indicated? Specimen cultured Assessment and Plan Assessment and Plan Assessment and Plan narrative: 1. 23-year-old 2 para 2 female 41 week gestation 2. Active labor 3. History of anemia which was treated with IV iron her hemoglobin has bounced back to 11.8. Time Spent with Patient Total time spent with greater than 50% in coordination of care (as documented) at patient's floor/unit and/or counseling patient:: 25 - 35 minutes
[2023-09-04 20:18] VITALS: BP 116/72
[2023-09-04 20:18] LABS: Add Manual Diff / Slide Review NO; Basophils Absolute Auto 0 /uL (0-100); Basophils Percent Auto 0.3 % (0-2); Eosinophils Absolute Auto 0 /uL (0-450); Eosinophils Percent Auto 0.4 % (2-4); Hemoglobin 11.8 g/dL (12.0-16.0); Lymphocytes Absolute Auto 1200 /uL (1100-4500); Lymphocytes Percent Auto 18.7 % (25-40); Mean Corpuscular HGB Conc 35.6 % (30-36); Mean Corpuscular Hemoglobin 34.1 PG (26-34); Mean Corpuscular Volume 95.6 fL (80-100); Monocytes Absolute Auto 400 /uL (0-900); Monocytes Percent Auto 5.7 % (3-14); Neutrophils Absolute Auto 4900 /uL (1500-7000); Neutrophils Percent Auto 74.9 % (50-75); Platelet Count 176 X10^3/uL (150-400); Red Blood Cell Count 3.46 X10^6/uL (4.0-5.2); Red Cell Distribution Width 18.3 % (11.6-14.8); White Blood Cell Count 6.6 X10^3/uL (4.5-11.0)
[2023-09-04 20:29] VITALS: BP 116/62; PULSE 81; RESP 15; TEMP 2.7; TEMP 36.8
[2023-09-04 20:30] LABS: Alanine Aminotransferase 9 IU/L (<35); Albumin 3.7 g/dL (3.5-5.0); Albumin Globulin Ratio 1.1 (1.0-2.8); Alkaline Phosphatase 131 U/L (38-126); Aspartate Aminotransferase 23 IU/L (14-36); Bilirubin Total 0.8 mg/dL (0.2-1.3); Blood Urea Nitrogen 9 mg/dL (7-17); Calcium 9.2 mg/dL (8.4-10.2); Carbon Dioxide 18 mmol/L (22-32); Chloride 105 mmol/L (98-107); Estimated Glomerular Filt Rate > 60 mL/min (>60); Globulin 3.4 g/dL (1.7-4.1); Glucose 87 mg/dL (70-100); HEMOLYSIS 31 (0-50); Potassium 3.6 mmol/L (3.4-5.1); Sodium 132 mmol/L (137-145); Total Protein 7.1 g/dL (6.3-8.2)
[2023-09-05] MEDS: NITROFURANTOIN ER 100 MG CAPSULE PO ×2 (00:12→13:37)
[2023-09-05] MEDS: OXYTOCIN PREMIX 30 UNIT/500 ML PLAST..BAG IV (03:12)
--- NOTE | 2023-09-05 08:22 | PM.OBPNLAB ---
Date/Time Date Patient Seen: 09/05/23 Time Patient Seen: 08:22 Pain Control Comments: Limb oz Pelvic Exam Dilation (cm): 5 Effacement (%): 80 Amniotic membrane status: Intact Comments: Membranes are not bulging. Contractions Date/Time contractions began: 1400 Contractions on admission: regular (Initially they are roughly 3 minutes however they decreased in frequency to Q 5-10 minutes) Monitor mode: External Pitocin rate (mU/min): 13 Contraction frequency (min): 3 Contraction pattern: Regular Contraction intensity: Strong/Firm Status status: Category l Heart Rate Baseline: 130 Monitor Accelerations: Present Monitor Decelerations: Absent Monitor Variability: Moderate Assessment and Plan Assessment: induction ongoing Comments: Dr. Grier to take over the patient's care.
--- NOTE | 2023-09-05 08:50 | PM.OBPNLAB ---
Date/Time Date Patient Seen: 09/05/23 Time Patient Seen: 08:50 Pain Control Pain control: tolerating well Pelvic Exam Dilation (cm): 7 Effacement (%): 85 station: 0 Amniotic membrane status: Intact Contractions Contractions on admission: regular Monitor mode: External Pitocin rate (mU/min): 11 Contraction frequency (min): 3 Contraction duration (min): 1 Contraction pattern: Regular Contraction intensity: Strong/Firm Status status: Category l Heart Rate Baseline: 135 Monitor Accelerations: Present Monitor Decelerations: Absent Monitor Variability: Moderate Assessment and Plan Assessment: active labor Comments: AROM with copious clear amniotic fluid Epidural as needed Expected management to spontaneous vaginal delivery
--- NOTE | 2023-09-05 09:37 | PM.OBPNLAB ---
Date/Time Date Patient Seen: 09/05/23 Time Patient Seen: 09:37 Pain Control Pain control: other (nitrous oxide) Pelvic Exam Dilation (cm): 8.5 Effacement (%): 85 station: 0 Amniotic membrane status: Ruptured Contractions Contractions on admission: regular Monitor mode: External Pitocin rate (mU/min): 11 Contraction frequency (min): 3 Contraction duration (min): 1 Contraction pattern: Regular Contraction intensity: Strong/Firm Status status: Category l Heart Rate Baseline: 140 Monitor Accelerations: Present Monitor Decelerations: Absent Monitor Variability: Moderate Assessment and Plan Assessment: active labor Comments: Side to side with peanut ball Expectant management to
[2023-09-05] MEDS: LIDOCAINE 1% 20 ML INJ (10:47)
--- NOTE | 2023-09-05 10:59 | PM.OBPRVD ---
Events: Labor Augmentation Labor & Delivery Delivery date: 09/05/23 Cervical ripening method: none Delivery augmentation: rupture of membranes and pitocin Delivery monitor: external FHT and external uterine Route of delivery: Episiotomy description: None L&D Laceration Description: Superficial (Perineal) Delivery repair: chromic Quantitative Blood Loss: 1,200 Anesthesia Type: Local (For repair only) Complications: 60 second shoulder dystocia relieved with Mara and suprapubic pressure Narrative: Patient complete and anterior lip was reduced with the first contraction. She then pushed for about 12 minutes. The vertex delivered in the ISAEL presentation, over an intact perineum. No nuchal cord. There was a 60 second shoulder dystocia which was relieved with Chuy Bojorquez and suprapubic pressure. The body delivered at 10:34 a.m.. A body cord x1 was reduced. Pitocin was given in the IV fluids. The cord was double clamped and cut after it stopped pulsing. Cord bloods were obtained. The placenta delivered intact with a three-vessel cord at 10:41 a.m.. There was a superficial perineal laceration which was repaired with 3-0 chromic with a [id number] suture. Apgars 8 at 1 minute and 9 at 5 minutes. Weight 10 lb 5.3 oz. 4 cc of 1% lidocaine were used for the repair. . Mom and stable to recovery. Baby 1: Infant gender: Male Presentation: vertex Position: Right Occiput Anterior Placenta delivery description: Spontaneous Cord Vessel Description: 3 Vessels score (1 min): 8 score (5 min): 9 weight: 10 lb 5.3 oz Plan for aftercare: Routine care
[2023-09-05] MEDS: miSOPROStoL 200 MCG TABLET 800 MCG PR (11:44)
[2023-09-05] MEDS: METHYLERGONOVINE 0.2 MG/ML VIAL IM (11:48)
[2023-09-05] MEDS: LACTATED RINGERS 1,000 ML 100 ML IV (11:50)
[2023-09-05] MEDS: ACETAMINOPHEN 325 MG TABLET 650 MG PO ×2 (12:05→18:07)
[2023-09-05] MEDS: IBUPROFEN 600 MG TABLET PO ×2 (12:05→18:08)
[2023-09-05] MEDS: DERMOPLAST SPRAY 20% 60 ML 1 SPRAY TOP (16:03)
[2023-09-05] MEDS: OXYCODONE IR 5 MG TABLET PO (19:20)
[2023-09-06] MEDS: ACETAMINOPHEN 325 MG TABLET 650 MG PO ×3 (00:15→12:34)
[2023-09-06] MEDS: OXYCODONE IR 5 MG TABLET PO (00:16)
[2023-09-06] MEDS: IBUPROFEN 600 MG TABLET PO ×3 (00:16→12:34)
[2023-09-06] MEDS: NITROFURANTOIN ER 100 MG CAPSULE PO ×2 (01:41→10:31)
[2023-09-06 06:51] LABS: Hematocrit 29.5 % (36-46); Hemoglobin 10.5 g/dL (12.0-16.0)
[2023-09-06] MEDS: LANOLIN OINT 7 GM 1 APPLIC TOP (06:59)
[2023-09-06 10:24] VITALS: BP 95/66; PULSE 72; RESP 17; TEMP 36.7
[2023-09-06] MEDS: DOCUSATE 100 MG CAPSULE PO (10:31)
[2023-09-06] MEDS: PRENATAL VIT,CALC/IRON/FOLIC 1 TABLET 1 TAB PO (10:31)
[2023-09-06] MEDS: MEASLES,MUMPS,RUBELLA VACC/PF 0.5 ML VIAL SUBCUT (11:34)
== END 2023-09-06 12:36 | disposition home or self-care (01) | DRG 807 ==
PROVIDERS: Obstetrics & Gynecology; Admitting Provider Obstetrics & Gynecology; PCP Family Medicine; Referring Provider Obstetrics & Gynecology; Visit Provider Obstetrics & Gynecology
DX: O48.0 Post-term pregnancy (principal); Z37.0 Single live birth; Z3A.41 41 weeks gestation of pregnancy; O70.0 First degree perineal laceration during delivery; O99.02 Anemia complicating childbirth; D50.9 Iron deficiency anemia, unspecified
CPT/HCPCS: 59050; 59400; 59409; 80053; 81001; 85014; 85018; 85025; 86850; 86900; 86901; 87086; G0379; J2210; J2590; S0191

== ENCOUNTER 2024-03-23 06:42 | Day surgery (SDC) | payer OTHER, SELFPAY ==
[2023-03-26 18:10] VITALS: BMI 22.3
[2024-03-23] VITALS (11 sets, daily range): BP systolic 101–128; BP diastolic 58–75; PULSE 59–98; RESP 10–17; TEMP 36.3–36.8; O2SAT 99–100; BMI 23.1
--- NOTE | 2024-03-23 | PATH_ITS ---
[facility] Accession Number: [id number] No. of containers..01 Tissue . 01 Material submitted: . fallopian tube - BILATERAL FALLOPIAN TUBES . 01 Diagnosis: BILATERAL FALLOPIAN TUBES: Longer fallopian tube, complete cross sections, with benign paratubal cysts (up to 6 mm in greatest dimension); negative for significant atypia. [place] fallopian tube, complete cros sections, with benign paratubal cysts (up to 6 mm in greatest dimension); negative for significant atypia. MRV 03/30/2024 1716 Local . 01 Electronically signed: . Jazmyn Vilchis MD, Pathologist NPI- [id number] . 01 Gross description: . Received in formalin with two identifiers and bilateral fallopian tubes, are two unoriented rico fimbriated fallopian tubes measuring 8.4 x 0.7 cm and 7.3 x 0.9 cm. Both tubes have smooth serosa with small cystic structures measuring up to 0.6 cm in greatest dimension filled with cloudy serous fluid. The lumens are stellate and unremarkable. Structural Iron Worker sections to include one-half of bisected fimbriae and cross sections are submitted as follows: . A1: Longer fallopian tube. A2: [place] fallopian tube. ([id number]) /MRV 03/27/2024 1603 Local . 01 Pathologist provided ICD-10: Z30.2 . 01 CPT . 041147 Specimen Comment: A courtesy copy of this report has been sent to [phone] Performed at: 01 [facility] [address] [place] [address] [facility] [place], [place], [place] [id number] MD Wade Villegas MD Phone: [phone]
[2024-03-23] MEDS: SCOPOLAMINE 1 PATCH TOP (07:15)
[2024-03-23] MEDS: LACTATED RINGERS 1,000 ML 42 ML IV (07:32)
--- NOTE | 2024-03-23 07:40 | PM.GYNHP.1 ---
History of Present Illness History of Present Illness Reason for admission: other (Request for sterilization) Narrative: Jill Quiroz is a 23 year old , LMP 3 weeks ago, who admitted for elective sterilization by laparoscopic bilateral salpingectomy. [facility] Medical History (Updated 03/23/24 @ 07:42 by Mookie Silvestre MD) Cholelithiasis Migraine without aura Encounter for IUD insertion (~07/22/21) Vaginal delivery (~05/26/21) Astigmatism (~2010) H/O molluscum contagiosum (~10/30/20) Asthma (~2002) Surgical History (Updated 03/15/24 @ 15:24 by Umu Winn RN) History of laparoscopic cholecystectomy (04/15/23) [place] teeth extracted (~2018) Family History Mother No problems noted. Father No problems noted. Grandmother No problems noted. Grandfather No problems noted. Grandmother Diabetes mellitus Grandfather Family estrangement Social History marital status: number of children: 1 household members: spouse and children lives independently: Yes caregiver/support person: Yes housing: apartment pets and animals: Yes (2 dogs) education level: high school occupational status: employed (active duty cook) current occupational exposures/hazards: No jose/pentecostal: [employer] special jose needs: No travel history: recent (Domestic and [place] only) seatbelt use: always water heater temp set < 120 deg: Yes working smoke detector in home: Yes fire extinguisher in home: Yes carbon monox detector in home: Yes firearms in home: Yes firearms unloaded and locked: Yes do you feel safe at home: Yes Smoking Status: Never smoker second hand exposure: No alcohol intake: current substance use type: does not use during the past year weight has: remained stable well-balanced diet: about half the time daily servings fruits/ve-4 caffeine: Yes (1 soda every couple days. Aware of caffeine limits.) Type(s) of exercise: walking and other frequency: 3-4 times per week Meds Home Medications and Allergies Home Medications Medication Instructions Recorded Confirmed Type ferrous sulfate 250 mg (50 mg 250 mg PO DAILY 01/13/23 03/23/24 History iron) tablet,extended release prenat.vits,derian,yjh-vtme-svfjt 1 tab PO DAILY 01/13/23 03/23/24 History acetaminophen 325 mg capsule 650 mg (2 x 325 mg) PO QID PRN 04/15/23 03/23/24 Rx (Tylenol) pain #60 caps cetirizine 10 mg tablet 10 mg PO DAILY 03/23/24 03/23/24 History Allergies Allergy/AdvReac Type Severity Reaction Status Date / Time No Known Drug Allergies Allergy Verified 03/23/24 07:19 Review of Systems Review of Systems Narrative: Problem-specific ROS positives included in HPI Exam Vital Signs (past 8 hours): - 03/23/24 07:10 Temperature 97.3 F L Pulse Rate 83 Respiratory Rate 16 Blood Pressure 128/66 Pulse Oximetry 99 Oxygen Delivery Method Room Air Oxygen Delivery Method Room Air Const General: cooperative and comfortable Nutritional Appearance: average body habitus Orientation: alert and oriented x3 HENMT Head: normal to inspection, atraumatic and abrasion Ears: hearing grossly normal bilaterally Face and sinus: face symmetric Eyes General: appearance normal, both eyes and all related structures Conjunctivae: conjunctivae normal Sclera: sclerae normal EOM: EOM intact bilaterally Neck Neck: normal visual inspection Resp Effort & Inspection: normal respiratory effort and able to speak in complete sentences Auscultation: clear to auscultation bilaterally Cardio Rate: regular rate Rhythm: regular rhythm Heart Sounds: S1 normal, S2 normal and no murmurs GI Inspection: normal to inspection Palpation: soft and no hepatosplenomegaly External Female Exam: other (No significant bleeding noted) Extrem General: no calf tenderness Psych Appearance: grossly normal Mental Status: mental status grossly normal Speech and Movement: speech and movement normal Mood: congruent mood Affect: normal affect Attitude: cooperative Thought Process: normal Thought Content: normal Judgment: judgment good Assessment & Plan Assessment and plan (1) Request for sterilization: Status: Acute Plan Patient counseled regarding alternatives, risks, benefits, and potential complications associated with laparoscopic bilateral salpingectomy. Patient understands this is procedure which will result in her permanently and irreversibly being unable to bear children without benefit of assisted reproductive technology. In addition she understands carries with it a small chance for failure (1-12/999), and should failure occur, ectopic gestation is likely. With full understanding of the above, written consent was executed, signed, and witnessed this date. Time Spent With Patient Time with patient: less than 30 minutes
[2024-03-23] MEDS: CEFAZOLIN 2 GM/100 ML PREMIX 100 ML IV (08:00)
[2024-03-23] MEDS: ACETAMINOPHEN IV 1,000 MG/100 ML VIAL 400 MG IV (08:05)
--- NOTE | 2024-03-23 08:23 | SUR.OPER ---
Lithotomy on padded OR bed, head on pillow, arms padded and tucked at sides. Legs secured in padded yellow fins stirrups.
[2024-03-23] MEDS: BUPIVACAINE 0.5% (PF) 30 ML VIAL INJ (08:28)
--- NOTE | 2024-03-23 08:58 | P.OP_ITS ---
Operative Date/Time/Diagnoses Date of procedure: 03/23/24 Time of procedure: 08:00 Pre-op diagnosis: Request for sterilization Post-op diagnosis: same Procedure & Clinicians Procedure: Procedures Operation Date: 03/23/24 07:45 Actual Procedure Side Surgeon p Laparoscopic Salpingectomy Bilateral Mookie Silvestre MD Indications: Jill Quiroz is a 23 year old , LMP 3 weeks ago, who admitted for elective sterilization by laparoscopic bilateral salpingectomy. Surgeon: Mookie Silvestre Anesthesia Type: General Operative Notes Findings: Normal female pelvis. The remainder of the abdomen and pelvis are normal the laparoscopic inspection Closure Type: primary Specimen(s): left tube and right tube Estimated blood loss (mL): 5 Blood products transfused: none Procedure in detail: With the patient under satisfactory general anesthesia in the modified dorsal lithotomy position, the perineum, vagina, and abdomen were prepped and draped for IUD removal and laparoscopic bilateral salpingectomy. A pre-surgical safety time-out was then taken in accordance with [facility] [place] protocols. The umbilicus was then infiltrated with 0.5% Marcaine with epinephrine and 1 cm vertical incision was made in the inferior aspect of the umbilicus. Veress needle was used to insufflate the abdomen with carbon dioxide and once appropriately insufflated, 5 mm bladeless trocar and sleeve were inserted through the incision. Proper placement of the sleeve was confirmed with laparoscopic visualization and insufflation of the abdomen continued. A 2nd and 3rd 5 mm laparoscopic port were placed in the right and left mid quadrants using a similar technique and using a 3 puncture technique, the abdomen and pelvis were visualized with the findings as noted above. The distal aspect of the left fallopian tube was then grasped with a grasping forceps and using a Power Seal device, fimbria ovarica was coagulated and divided the dissection using the Power Seal continuing across the mesosalpinx to the cornua where the base fallopian tube was coagulated and divided. The left fallopian tube was then removed through one of the ports and submitted pathologic specimen. Attention was then turned to the right adnexa with distal tube grasped with a grasping forcep. The Power Seal device was then used to coagulate fimbria ovarica and the dissection was carried across the mesosalpinx to the cornua where the fallopian tube on the right side was amputated at the cornua following coagulation proximal tube the Power Seal device. Pelvis was inspected and there were no abnormalities noted following bilateral salpingectomy. The pneumoperit oneum was then vented and the ports removed from the abdominal wall. Port incisions were then closed with 4-0 Monocryl using inverted interrupted stitches and skin glue was applied. Appropriate dressings were then applied, patient was awakened, and transferred to the PACU for a period of observation after having tolerated the procedure well. Complications: none Post-operative Condition: stable Disposition: PACU Plan for aftercare: Routine postoperative care
[2024-03-23] MEDS: ONDANSETRON 4 MG/2 ML INJ IV (09:10)
[2024-03-23] MEDS: HYDROMORPHONE 1 MG INJ IV ×2 (09:11→09:17)
[2024-03-23] MEDS: LACTATED RINGERS 1,000 ML 250 ML IV (09:20)
[2024-03-23] MEDS: OXYCODONE IR 5 MG TABLET PO (09:26)
== END 2024-03-23 10:32 | disposition home or self-care (01) ==
PROVIDERS: PCP Family Medicine; Referring Provider Obstetrics & Gynecology; Visit Provider Obstetrics & Gynecology
PROC: 0UT74ZZ Resection of Bilateral Fallopian Tubes, Percutaneous Endoscopic Approach (ICD-10-PCS; CPT 58661; principal; 2024-03-23 07:45)
DX: Z30.2 Encounter for sterilization (principal)
CPT/HCPCS: 58661; 81025; J0136; J0690; J1100; J1170; J1885; J2250; J2405; J2704; J3010